=== PATIENT | male | born 1935 | race Caucasian/White ===

== ENCOUNTER 2020-12-04 09:19 | Outpatient (CLI) | payer MEDICARE, SELFPAY ==
--- NOTE | ~2020-12-04 | US_ITS ---
US renal BI 12/04/2020 10:39 Procedure: Realtime transabdominal ultrasound of the kidneys and bladder. Indication: Chronic kidney disease stage III Comparison: No prior studies for comparison. Findings: There are multiple bilateral renal cysts. Largest in the right kidney measures 6.1 cm. Larg est in the left measures 2.2 cm. No solid masses, hydronephrosis or renal stones. The right kidney me asures 13.7 cm and left kidney measures 10.6 cm. Bladder within normal limits. Impression: 1: Bilateral renal cysts. Reviewed, dictated and finalized at location A. Impression: 1: Bilateral renal cysts.
== END 2020-12-04 09:20 | disposition home or self-care (01) ==
LOC: ANHIMG 09:24
PROVIDERS: PCP Family Medicine; Visit Provider Family Medicine
DX: N18.30 Chronic kidney disease, stage 3 unspecified (principal); N28.1 Cyst of kidney, acquired
CPT/HCPCS: 76775

== ENCOUNTER 2021-01-13 14:30 | Outpatient (RCR) | payer MEDICARE, SELFPAY ==
--- NOTE | 2021-01-04 16:31 | STOPEVAL ---
SPEECH THERAPY INITIAL EVALUATION: Thank you for referring Dwayne Hopson to [facility].? The patient is scheduled to be seen for therapy? 2x/week for 4 weeks. Please review, sign, date and return this plan of care BOB. I agree with and certify that the following plan of care is medically necessary. Referring Physician Date Attending Provider: Jonatan Wilkinson MD Outpatient Past Medical History Past Medical History Source of Past Medical History Patient Neurological History Hx Parkinson's Disease Yes: pt thinks 2016 or so Musculoskeletal History Hx Other Musculoskeletal Disorders Yes: back surgery @ L5 HEENT History Hx Macular Degeneration Yes Evaluation Information Problem Diagnosis swallowing and speech difficulty/not being loud enough Onset Pt thinks he was diagnosed about 5 years ago Prior Level of Function Activity Level (Last 3 Months) Occupation retired Driving Yes Home Setting Home Type House Living Situation With Spouse Mobility Assistive Devices (Used Last 3 Walker, Rollator Months) Prior Swallow Level Prior Intake Method Oral Prior Diet Soft and Bite-Sized (Level 6 Diet) Prior Liquid Consistency Thin (Level 0 Diet) Comments Additional Prior Level of Function Pt reports that he eats soft Comments foods that require less chewing; dentition is intact; he reports that his vocal quality is often gurgly due to excessive saliva that gathers and accumulates in throat Bedside Swallow Evaluation General Reports Dysphagia Yes: occasionally I regurgitate my food Onset of Dysphagia pt unable to determine when difficulty began;pt also reports low volume History of Related Medical Diagnosis Parkinson's Disease Reported Difficult Consistencies Solids Meal Observed Bedside Swallows History of Dysphagia No: I eat softer foods that don't require a lot of chewing Other Factors Impacting Dysphagia Neurological Impairment History of Pneumonia No Intake Method Prior to Swallow Oral Evaluation Diet Prior to Swallow Evaluation Soft and Bite Size, Level 6 Liquid Consistency Prior to Swallow Thin (0) Evaluation Cognition During Swallowing Alert Consistency Solid Consistency Other Swallow Amount cracker M
--- NOTE | 2021-02-03 12:52 | STOPEVAL ---
SPEECH THERAPY DISCHARGE: Thank you for referring Dwayne Hopson to [facility].? The patient has been discharged from speech therapy services at this time. Please review, sign, date and return this discharge summary BOB. I agree with and certify with the following discharge plan. Referring Physician Date Attending Provider: Jonatan Wilkinson MD * Outpatient Evaluation ST Clinical Summary Clinical Summary ST Clinical Summary This 85 year old was seen in outpatient speech therapy for a bedside swallow evaluation and speech evaluation due to complaint of low volume and difficulty swallowing. Pt stated he has diagnosis of Parkinson disease but stated he was told he has the kind that occurs later in life and would not kill him . Pt presented with an intermittent wet/gurgly vocal quality and reported his spouse has hearing loss and cannot hear him. He could not definitively state when he was diagnosed with Parkinson disease. Pt stated he occasionally has difficulty swallowing as food gets stuck and he occasionally coughs while drinking. Upon completion of the speech/ voice portion of the evaluation, a mild decline in intelligibility occurred during a reading task which would potentially mimic pt telling his spouse a story etc . Gurgly vocal quality, increased rate, and slight decline in volume, at times, contributed to the decline in his overall intelligibility. Averages in volume in terms of decibels is described above. Breath support was found to be within normal limits; oral motor assessments was within functional limits in regard to ROM, speed, and strength. Swallow evaluation: pt was
== END 2021-02-03 16:43 | disposition home or self-care (01) ==
LOC: ANHST 14:30
PROVIDERS: PCP Family Medicine; Visit Provider Psychiatry & Neurology Neurology
DX: R47.9 Unspecified speech disturbances (principal); R13.10 Dysphagia, unspecified
CPT/HCPCS: 92522; 92526; 92610

== ENCOUNTER 2021-11-02 13:40 | Inpatient (IN) | payer MEDICARE, SELFPAY ==
[2021-11-02] VITALS (23 sets, daily range): BP systolic 113–187; BP diastolic 42–79; PULSE 64–117; RESP 15–25; TEMP 37.1–37.2; O2SAT 88–100; BMI 23.1
--- NOTE | ~2021-11-02 | CT_ITS ---
EXAMINATION: CTA chest PE protocol DATE: 11/02/2021 16:51 CDT INDICATION: Hypoxia. Covid positive. TECHNIQUE: Computed tomographic angiography (CTA) of the chest was performed with 100 mL Omnipaque-35 0 intravenous contrast. The dose-length product was 584.74 mGy-cm. Maximum intensity projection 3D-re constructions of the aorta and other arteries were constructed by the technologist on a separate work station. COMPARISON: Chest x-ray dated 11/02/2021. FINDINGS: Heart size is normal. There is a hiatal hernia. No large central pulmonary embolism. Evalua tion of peripheral pulmonary arteries limited by contrast bolus timing and motion. No significant ple ural effusion. There is left hilar and mediastinal lymphadenopathy. There is a pericardial effusion. There is patchy groundglass opacities in both lungs, consistent with pneumonia. There are bilateral r enal cysts. IMPRESSION: 1. Patchy bilateral groundglass opacities in both lungs, consistent with pneumonia. 2: No large central pulmonary embolism. 3: Mediastinal and left hilar lymphadenopathy, likely reactive. 4: Small pericardial effusion. Reviewed, dictated and finalized at location A. IMPRESSION: 1. Patchy bilateral groundglass opacities in both lungs, consistent with pneumo darlin. 2: No large central pulmonary embolism. 3: Mediastinal and left hilar lymphadenopathy, likely reactive. 4: Small pericardial effusion.
--- NOTE | ~2021-11-02 | XR_ITS ---
XR chest 1V portable 11/02/2021 15:24 Indication: Status post fall. Chest pain. Procedure: AP portable chest Comparison: No prior studies for comparison. Findings: Heart size normal. There is patchy bibasilar airspace disease, consistent with pneumonia. N o pleural effusion or pneumothorax. There is atherosclerosis of the aorta. No acute osseous abnormali ty. Impression: 1: Patchy bilateral airspace disease, compatible with pneumonia. Reviewed, dictated and finalized at location A. Impression: 1: Patchy bilateral airspace disease, compatible with pneumonia.
--- NOTE | ~2021-11-02 | XR_ITS ---
EXAMINATION: XR chest ET placement DATE: 11/04/2021 15:19 INDICATION: Intubation. TECHNIQUE: A single frontal view of the chest was obtained on 2 radiographs. COMPARISON: Chest single view at 5:31 AM FINDINGS: There is a diffuse interstitial pattern in the lungs. There are airspace opacities in the l ower lung zones. No pleural effusion or pneumothorax. The heart size is normal. The endotracheal tube tip is 4.7 cm above the neymar. The nasogastric tube tip is in the stomach. IMPRESSION: 1. Mildly worsened diffuse lung disease, likely a combination of pneumonia and mild pulmonary edema. Reviewed, dictated and finalized at location A.
--- NOTE | ~2021-11-02 | XR_ITS ---
EXAMINATION: XR chest 1V portable DATE: 11/03/2021 06:17 INDICATION: Intubated. TECHNIQUE: A single frontal view of the chest was obtained on 2 radiographs. COMPARISON: Chest single view 11/02/2021 FINDINGS: There are airspace opacities in right lower lung zone and left mid and lower lung zones. Th ere is a small left pleural effusion. No pneumothorax. The heart size is normal. The nasogastric tube tip is in the stomach. Endotracheal tube tip is 7.4 cm above the neymar. IMPRESSION: 1. Airspace opacities in right lower lung zone and left mid and lower lung zones with worsening on th e right, consistent with pneumonia. 2. Small left pleural effusion. Reviewed, dictated and finalized at location A. IMPRESSION: 1. Airspace opacities in right lower lung zone and left mid and lower lung zone s with worsening on the right, consistent with pneumonia. 2. Small left pleural effusion.
--- NOTE | ~2021-11-02 | XR_ITS ---
EXAMINATION: XR chest 1V portable DATE: 11/08/2021 06:55 INDICATION: Endotracheal tube placement TECHNIQUE: frontal view of the chest was obtained. COMPARISON: Chest radiograph dated 11/06/2021 FINDINGS: Endotracheal tube tip 3.1 cm above the neymar. Nasogastric tube tip in the stomach. Improvement in subtle opacities in the bilateral lower lung zones, left greater than right. No pleura l effusion or pneumothorax. The cardiomediastinal silhouette is normal. There are bridging osteophyte s at multiple levels in the spine, consistent with diffuse idiopathic skeletal hyperostosis (DISH). IMPRESSION: 1. Endotracheal tube and nasogastric tube in expected positions. 2. Decrease in subtle opacities in bilateral lower lung zones, left greater than right consistent wit h improving pneumonia and/or atelectasis. Reviewed, dictated and finalized at location A. IMPRESSION: 1. Endotracheal tube and nasogastric tube in expected positions. 2. Decrease in subtle opacities in bilateral lower lung zones, left greater ирина n right consistent with improving pneumonia and/or atelectasis.
--- NOTE | ~2021-11-02 | CT_ITS ---
EXAMINATION: CT brain wo con DATE: 11/02/2021 15:17 INDICATION: Status post fall. Head injury. TECHNIQUE: Computed tomography (CT) of the head was performed without intravenous contrast. The dose- length product was 473.22 mGy-cm. Automated exposure control and iterative reconstruction technique w ere employed. COMPARISON: None FINDINGS: Generalized atrophy. There are scattered mild periventricular and subcortical white matter changes, most likely related to small vessel ischemic disease (microangiopathy). No acute intracrania l hemorrhage, infarction, mass or mass effect. Paranasal sinuses and mastoids are pneumatized. IMPRESSION: 1. No acute intracranial abnormality. 2: Chronic age-related findings. Reviewed, dictated and finalized at location A.
--- NOTE | ~2021-11-02 | XR_ITS ---
EXAMINATION: XR chest ET placement DATE: 11/02/2021 23:37 INDICATION: Intubation. TECHNIQUE: A single frontal view of the chest was obtained. COMPARISON: Chest single view 11/02/2021 FINDINGS: There are airspace opacities in the lower lung zones. No pleural effusion or pneumothorax. The heart size is normal. The endotracheal tube tip is 7.0 cm above the neymar. IMPRESSION: 1. Airspace opacities in the lower lung zones, consistent with pneumonia. Reviewed, dictated and finalized at location A.
--- NOTE | ~2021-11-02 | XR_ITS ---
XR pelvis 1-2V DATE: 11/02/2021 15:24 INDICATION: Fall. Pelvic pain. TECHNIQUE: AP view COMPARISON: None FINDINGS: Very prominent bridging osteophytes and multilevel degenerative disc disease of the lumbosa cral area. Bilateral hip severe osteoarthritis, right greater than left. The pubic symphysis and sacroiliac joints are intact. No pelvic fracture or bone destruction is detected. IMPRESSION: No pelvic fracture or bone destruction Severe bilateral hip osteoarthritis Prominent bridging osteophytes and multilevel degenerative disc disease of the lumbar and lower cervi dwight spine Reviewed, dictated and finalized at location B. IMPRESSION: No pelvic fracture or bone destruction Severe bilateral hip osteoarthritis Prominent bridging osteophytes and multilevel degenerative disc disease of the lumbar and lower cervical spine
--- NOTE | ~2021-11-02 | XR_ITS ---
EXAMINATION: XR chest 1V portable DATE: 11/04/2021 05:45 INDICATION: Intubated. TECHNIQUE: A single frontal view of the chest was obtained on 2 radiographs. COMPARISON: Chest single view 11/03/2021, chest CT 11/02/2021 FINDINGS: The patient is rotated to his left. There are airspace opacities in the lower lung zones. T here is a small left pleural effusion. No pneumothorax. The heart size is normal. The endotracheal tu be tip is 5.2 cm above the neymar. The nasogastric tube tip is in the stomach. IMPRESSION: 1. Stable airspace opacities in the lower lung zones, consistent with pneumonia. 2. Stable small left pleural effusion. Reviewed, dictated and finalized at location A. IMPRESSION: 1. Stable airspace opacities in the lower lung zones, consistent with pneumonia . 2. Stable small left pleural effusion.
--- NOTE | ~2021-11-02 | CT_ITS ---
EXAMINATION: CT cervical spine wo con DATE: 11/02/2021 15:17 INDICATION: Status post fall. Neck pain. TECHNIQUE: Computed tomography (CT) of the cervical spine was performed without intravenous contrast. The dose-length product was 298 mGy-cm. Automated exposure control and iterative reconstruction tech nique were employed. COMPARISON: No prior studies for comparison. FINDINGS: There is disc narrowing and degenerative endplate changes at most cervical spine levels. Th ere are prominent bridging osteophytes at C3-4 through C7-T1. No acute fracture or traumatic malalign ment. Odontoid process within normal limits. There is intracranial atherosclerosis. There is left upp er lobe airspace disease, suspicious for pneumonia. IMPRESSION: 1. No acute abnormality of the cervical spine. 2: Left upper lobe airspace disease, suspicious for pneumonia. 3: Moderate-severe cervical spondylosis with multilevel syndesmophyte formation. Reviewed, dictated and finalized at location A. IMPRESSION: 1. No acute abnormality of the cervical spine. 2: Left upper lobe airspace disease, suspicious for pneumonia. 3: Moderate-severe cervical spondylosis with multilevel syndesmophyte formation .
--- NOTE | ~2021-11-02 | XR_ITS ---
EXAMINATION: XR chest ET placement DATE: 11/03/2021 06:16 INDICATION: Endotracheal tube repositioning. TECHNIQUE: A single frontal view of the chest was obtained on 2 radiographs. COMPARISON: Chest CT 11/02/2021, chest single view 11/02/2021 FINDINGS: There are airspace opacities in right lower lung zone and left mid and lower lung zones. Th ere is a small left pleural effusion. No pneumothorax. The heart size is normal. The endotracheal tub e tip is 5.3 cm above the neymar. The nasogastric tube tip is in the stomach. IMPRESSION: 1. Airspace opacities in right lower lung zone and left mid and lower lung zones, consistent with pne umonia. 2. Small left pleural effusion. Reviewed, dictated and finalized at location A. IMPRESSION: 1. Airspace opacities in right lower lung zone and left mid and lower lung zone s, consistent with pneumonia. 2. Small left pleural effusion.
--- NOTE | ~2021-11-02 | XR_ITS ---
EXAMINATION: XR chest 1V portable INDICATION: Shortness of breath TECHNIQUE: Portable AP chest at 0601 hours COMPARISON: 11/05/2021 FINDINGS: The endotracheal tube ends approximately 4.1 cm above the neymar. The nasogastric tube is i n the stomach. There are stable left basilar airspace opacities. The previously described diffuse int erstitial pattern has resolved. No definite pleural effusion or pneumothorax. The cardiomediastinal s ilhouette is stable. IMPRESSION: 1. Left basilar airspace opacities, consistent with atelectasis versus pneumonia. Reviewed, dictated and finalized at location A. IMPRESSION: 1. Left basilar airspace opacities, consistent with atelectasis versus pneumoni a.
--- NOTE | ~2021-11-02 | XR_ITS ---
EXAMINATION: XR chest 1V portable INDICATION: Respiratory failure TECHNIQUE: Portable AP chest at 0548 hours COMPARISON: 11/04/2021 FINDINGS: The endotracheal tube ends approximately 5.1 cm above the neymar. The nasogastric tube is i n the stomach. A mild diffuse interstitial pattern persists but has improved. There are persistent ai rspace opacities in the left lung base. No pleural effusion or pneumothorax. The cardiomediastinal si lhouette is stable. IMPRESSION: 1. Diffuse lung disease with slight improvement and stable opacities of the left lung base, consisten t with pneumonia and/or pulmonary edema. Reviewed, dictated and finalized at location A. IMPRESSION: 1. Diffuse lung disease with slight improvement and stable opacities of the lef t lung base, consistent with pneumonia and/or pulmonary edema.
--- NOTE | 2021-11-02 13:58 | ECG_ITS ---
Measurements Intervals [place] Rate: 73 P: 50 CA: 178 QRS: 90 QRSD: 141 T: 58 QT: 412 QTc: 454 Interpretive Statements SINUS RHYTHM WITH SINUS ARRHYTHMIA RIGHT BUNDLE BRANCH BLOCK [120+ ms QRS DURATION, UPRIGHT V1, 40+ ms S IN I/aVL/V4/V5/V6] RIGHT AXIS DEVIATION NO PREVIOUS ECG AVAILABLE FOR COMPARISON Electronically Signed On 11-02-2021 18:37:22 CDT by Aprly Frankel M.D.
[2021-11-02 14:39] LABS: SARS-CoV-2 RNA PCR Positive
[2021-11-02 14:56] LABS: Basophils Percent Auto 0.2 % (0.2-1.2); Hemoglobin 10.7 g/dL (14.0-18.0); Immature Granulocyte Absolute 0.05 K/mm3 (0.00-0.031); Immature Granulocyte Percent A 0.4 % (0-0.5); Lymphocytes Absolute Auto 1.04 K/mm3 (0.9-3.2); Lymphocytes Percent Auto 7.7 % (18.3-44.2); Mean Corpuscular HGB Conc 31.5 g/dl (32-36); Mean Corpuscular Hemoglobin 30.6 pg (26-34); Mean Corpuscular Volume 97.1 fl (80-100); Mean Platelet Volume 9.8 fl (7.4-10.4); Monocytes Absolute Auto 1.4 K/mm3 (0.1-0.6); Monocytes Percent Auto 10.4 % (2.6-8.5); Neutrophils Absolute Auto 11.1 K/mm3 (1.3-6.7); Neutrophils Percent Auto 81.3 % (45.5-73.1); Platelet Count Result 171 k/mm3 (150-375); Red Cell Distribution Width 13.6 % (11.5-14.5); White Blood Count 13.6 K/mm3 (4.5-10.0)
[2021-11-02 15:11] LABS: Alanine Aminotransferase 10 U/L (6-50); Albumin Level 3.3 g/dL (3.5-5.1); Alkaline Phosphatase 66 U/L (38-126); Anion Gap 6 mmol/L (8-16); Aspartate Amino Transferase 42 U/L (17-59); Bilirubin,Total 0.4 mg/dL (0.2-1.3); Blood Urea Nitrogen 28 mg/dL (9-20); Calcium 7.8 mg/dL (8.4-10.2); Carbon Dioxide 28 mmol/L (22-30); Chloride 96 mmol/L (98-107); Estimated CRCL calculation 38 ml/min; Estimated Glomerular Filt Rate 57; Glucose 101 mg/dL (65-110); Potassium 3.9 mmol/L (3.4-5.0); Sodium 130 mmol/L (137-145)
[2021-11-02 15:22] LABS: NT Pro B Type Natriuretic Pept 2130 pg/mL (5-100)
[2021-11-02 15:27] LABS: Troponin I 0.031 ng/mL (0.000-0.034)
[2021-11-02 15:41] LABS: D Dimer 1.12 ug/mL (<0.48)
[2021-11-02] MEDS: FUROSEMIDE INJ 40 MG/4 ML VIAL 20 MG IV PUSH (15:45)
[2021-11-02] MEDS: DEXAMETHASONE SOD PHOS INJ 4 MG/ML VIAL 12 MG IV PUSH (15:45)
--- NOTE | 2021-11-02 15:49 | PC.NURSE ---
pt has large amount of secretions. Pt will cough and spit or have them suctioned when prompted to clear them.
--- NOTE | 2021-11-02 17:53 | PC.NURSE ---
suctioned secretions from pts mouth
--- NOTE | 2021-11-02 17:57 | PC.NURSE ---
pt using urinal at this time with assistance
[2021-11-02 18:38] LABS: Troponin I 0.038 ng/mL (0.000-0.034)
[2021-11-02] MEDS: ASPIRIN 81 MG CHEWABLE TABLET 324 MG PO (18:50)
--- NOTE | 2021-11-02 20:00 | ADMGEN ---
This patient, Dwayne Hopson, was admitted to IMU Room 213-01. Patient/family oriented to hospital policies and general routines including ID bracelet, bed and alarms, visiting hours, pain management, procedures, bathroom and other care routines, personal items, smoking policy, room service/diet, and visiting hours. Information on how to activate the Rapid Response Team has been discussed. Patient/Family are encouraged to report perceived risks to care and to ask questions if they do not understand what they are told or what they should do.
--- NOTE | 2021-11-02 20:26 | ED.GENADULT ---
HPI - General Adult General Chief complaint: Syncope Stated complaint: syncopal Time Seen by Provider: 11/02/21 14:03 History of Present Illness HPI narrative: This is a 86-year-old male with history of Parkinson's disease present in the ED after syncopal event at home. Patient states that he was attempting to take out his garbage when he had a fall due to his Parkinson's. he denies any preceding dizziness, chest pain difficulty breathing. EMS was called to help him up. When EMS helped the patient up he had a syncopal event that lasted for approximately 45 minutes. the patient has taken a positive home COVID test. He was found to be hypoxic by EMS at 88% on room air. He improved on 2 L nasal cannula. He has had fever chills and productive cough. He denies any other symptoms. Related Data Home Medications Medication Instructions Recorded Confirmed multivitamin (Multiple Vitamins 1 tablet PO DAILY 10/31/19 03/07/21 tablet) vit cap PO 10/31/19 03/07/21 C,E,zinc,Jd-akban-4-lutein-zeaxanthin 250 mg-2.5 mg-0.5 mg capsule Allergies Allergy/AdvReac Type Severity Reaction Status Date / Time No Known Allergies Allergy Verified 11/02/21 14:08 Review of Systems Review of Systems: CONSTITUTIONAL: Denies night sweats. EYES: No eye pain ENT: Denies rhinorrhea CARDIOVASCULAR: Denies palpitations RESPIRATORY: Denies hemoptysis GASTROINTESTINAL: Denies hematemesis GENITOURINARY: Denies hematuria. SKIN: Denies rash MUSCULOSKELETAL: Denies myalgia. NEUROLOGIC: Denies weakness. PSYCHIATRIC: Denies delusions PMFSH Past Medical History Medical History BPH loc w urin obs/LUTS Chronic renal insufficiency, stage III (moderate) Macula lutea degeneration Parkinson disease Surgical History Surgical History History of hernia repair History of tonsillectomy Family History Family History Father Acute myocardial infarction Mother Family history of lymphoma Social History Social History Smoking status: Former smoker Second hand tobacco smoke exposure: No Smoking end date: 03/26/70 Alcohol intake: current Drinks per week: 2 Substance use: never Substance use type: does not use Gender identity (if verbalized by the patient): Male Sexual Orientation (if Verbalized by the Patient): Straight or Heterosexual Spiritual care concerns: Yes Agree to blood products: Yes Exam Narrative: APPEARANCE: No apparent distress. Patient appears frail Head atraumatic. EYES: PERRLA/EOMI, NOSE: Normal no drainage NECK: Supple, Trachea midline RESPIRATORY: bibasilar crackles, no increased work of breathing CARDIOVASCULAR: S1S2 appreciated ABDOMINAL: Soft, nontender, nondistended, MUSCULOSKELETAl: No obvious deformities NEURO: Alert. Cranial nerves 2-12 grossly intact. Sensation light touch, motor function cerebellar function intact for 4 extremities. Gait exam was normal. SKIN:: Warm, dry. Normal color PSYCHIATRIC: Normal affect Course Vital Signs Vital signs: Vital Signs Temperature 98.9 F 11/02/21 13:39 Pulse Rate 74 11/02/21 13:39 Respiratory Rate 20 11/02/21 13:39 Blood Pressure 125/52 L 11/02/21 13:39 Pulse Oximetry 88 L 11/02/21 13:39 Oxygen Delivery Room Air 11/02/21 13:39 Temperature 98.9 F 11/02/21 13:39 Pulse Rate 76 11/02/21 19:51 Respiratory Rate 23 H 11/02/21 19:51 Blood Pressure 144/68 H 11/02/21 19:51 Pulse Oximetry 97 11/02/21 19:51 Oxygen Delivery Nasal Cannula 11/02/21 14:04 Oxygen Flow Rate 2 11/02/21 14:04 Medical Decision Making MDM Narrative Medical decision making narrative: is an 86-year-old male sent to ED following a fall and syncopal event. CT of the head C-spine, chest x-ray and pelvis x-ray been
--- NOTE | 2021-11-02 22:00 | PC.NURSE ---
Attempted to deep suction pt with amount of thick heaton sputum collected.
--- NOTE | 2021-11-02 22:28 | PC.NURSE ---
This RN walked in to check pt with SpO2 sensor off at 2227 and noticed pt gasping for air. Attempted to suction d/t pt producing a large amount of sputum in previous suction attempts. Pt quickly progressed to no air flow in the lungs, decreased consciousness, and SpO2 at 66%. Code blue for respiratory arrest activated at 2229. Began ventilating pt with ambu bag with increase in O2 saturation. Transfer to ICU at 0.
--- NOTE | 2021-11-02 22:30 | PM.CCN ---
Critical Care Event Note Summary Code activated: Yes Narrative: This case had a high probability of a clinically significant, sudden, or life threatening deterioration of this patient's condition which required my full and direct attention, intervention and personal management. Critical care time: less than 30 mins
--- NOTE | 2021-11-02 23:00 | WPDPROCEDUR ---
Procedures Central Line Placement Right Femoral: Consent: I have discussed with the patient and/or surrogate, the non-emergent placement of a central venous catheter, including its clinical necessity/indication and associated potential risks and complications. The patient and/or surrogate understand(s) and acknowledge(s) the need to proceed with central venous catheter insertion as an important element of the patient's clinical management. Time Out Performed: Yes Patient Position: supine Patient placed on monitor/pulse ox: Yes Provider Prep: Max. sterile barrier precautions Central line prep: 2% Chlorhexidine scrub Local anesthesia used: lidocaine 1% Amount of anesthesia used (ml): 8 Sterile US Technique with sterile gel/sterile probe covers: Yes Central line lumen inserted: triple Gibralt[place]: 7 Length (cm): 16 Depth of Insertion (cm): 15 Complications: none Additional comments: no postprocedure x-ray needed as it is a Femoral central
[2021-11-02 23:14] LABS: Alveolar/Arterial O2 Gradient 148.4 mmHg; Base Excess ABG -3.6 mEq/l (+/-2.0); Carboxyhemoglobin 0.2 % THb (0-2.0); Fractional Inspired Oxygen 50 %; HCO3 ABG 26.3 mEq/l (22.0-26.0); Methemoglobin ABG 0.4 %THb (0-1.5); Oxygen Content ABG 18.8 %vol (16.0-22.0); Oxygen Saturation ABG 97.6 % (95.0-100.0); Oxyhemoglobin 96.8 % THb (90.0-100.0); PO2 ABG 127.3 mmHg (80.0-100.0); PO2 FiO2 Ratio Arterial Blood 2.55 %; Reduced Hemoglobin 2.6 %THb (0-5.0); Total Hemoglobin 13.7 g/dL (12.0-18.0)
[2021-11-02] MEDS: FENTANYL 2,500MCG/NS250ML(*CRX 2,500 MCG/250 ML BAG IV CONT (23:15)
[2021-11-02 23:19] LABS: PCO2 ABG 71.8 mmHg (35.0-45.0); Site Drawn LEFT RADIAL; pH ABG 7.182 (7.350-7.450)
[2021-11-02 23:20] LABS: Arterial Blood Gas PEEP 5 cmH2O; Arterial Blood Gas Tidal Volume 400 ml; Arterial Blood Gas Vent Mode CMV; Arterial Blood Gas Ventilator rate 16 /MIN; Device VENTILATOR; Modified Allen's Test Pass
[2021-11-02] MEDS: MIDAZOLAM 100MG/NS 100ML(*CRX) 100 MG/100 ML BAG IV CONT (23:20)
[2021-11-03] VITALS (35 sets, daily range): BP systolic 88–136; BP diastolic 43–69; PULSE 4–77; RESP 18–24; TEMP 35.3–36.6; O2SAT 90–99; BMI 23.8
--- NOTE | 2021-11-03 | ECHO_ITS ---
Patient Info Name: Dwayne Hopson Age: 86 years : 1935 Gender: Male Ht: 68 in Wt: 150 lbs BSA: 1.81 m2 HR: 59 bpm BP: 93 / 43 mmHg Technical Quality: Poor Exam Date: 11/03/2021 9:32 AM Exam Location: [facility] Patient Status: Inpatient Admit Date: 11/02/2021 Staff Ordering Physician: Carmela Escalante NP Fisher Oyster: Didier Henson RDCS, RT Attending Provider: Marky Hammond MD Referring Physician: Boris GARCIA; Exam Type: CA echo doppler color flow Study Info Indications I50.9 - Heart failure, unspecified Complete two-dimensional, color flow and Doppler transthoracic echocardiogram is performed. Summary 1. Complete two-dimensional, color flow and Doppler transthoracic echocardiogram is performed. 2. Technically suboptimal study due to poor sonographic images. 3. Left ventricular chamber dimension is normal. 4. Left ventricular systolic function is normal, estimated at 55-60%. 5. There is mildly increased left ventricular wall thickness. 6. The left ventricular diastolic function is grade I diastolic dysfunction. 7. E/e' 8 is minimally elevated. 8. Right ventricular chamber dimension is mildly enlarged. 9. There is trivial pericardial effusion. Left Ventricle Technically suboptimal study due to poor sonographic images. Left ventricular chamber dimension is normal. Left ventricular systolic function is normal, estimated at 55-60%. There is mildly increased left ventricular wall thickness. The left ventricular diastolic function is grade I diastolic dysfunction. E/e' 8 is minimally elevated. Right Ventricle Right ventricular chamber dimension is mildly enlarged. Right ventricular systolic function is normal. Left Atria Left atrial chamber dimension is normal. Right Atria Right atrial chamber dimension is normal. Aortic Valve The aortic valve is not well visualized. Cannot determine number of aortic valve leaflets. There is no aortic valve stenosis. There is no aortic valve regurgitation. Pulmonic Valve The pulmonic valve is not well visualized. Mitral Valve There is no mitral valve stenosis. There is no mitral valve regurgitation. Tricuspid Valve The tricuspid valve leaflets are not well visualized. There is no tricuspid valve regurgitation. Pericardium/Pleural There is trivial pericardial effusion. Inferior Vena Cava Inferior vena cava is not well visualized. Aorta The aortic root size at the sinus of Valsalva is normal. Left Ventricular Outflow Tract Name Value Normal LVOT 2D LVOT Diameter 2.1 cm LVOT Doppler LVOT Peak Gradient 2 mmHg LVOT Mean Gradient 1 mmHg LVOT VTI 20 cm LVOT VTI/AV VTI Ratio 0.9 LVOT Stroke Volume 68 ml LVOT CO 4.1 l/min LVOT CI 2.2 l/min/m2 Mitral Valve Name Value Normal
--- NOTE | 2021-11-03 00:22 | P.PNCROSS_ITS ---
Event Note Event Note Event Note: I was called to a code blue at 10:30 p.m. the patient had a pulse and the nurs ing staff was using the Ambu bag to oxygenate the patient because he was copy breathing. No chest compressions were performed. The patient had gone in to [facility].
--- NOTE | 2021-11-03 00:23 | PM.IMHP ---
H&P: HPI History of Present Illness Date/Time: 11/02/21 2200 Chief Complaint: Shortness of breath and syncope Narrative: this is a 86-year-old male patient with a history of Parkinson's who presented to the emergency room after syncopal event at home. The patient was attempting to take out his garbage when he fell. He is abrasions to both of his knees. He denied any dizziness or any chest pain at the time and denied any difficulty breathing. EMS was called help get him up. The patient had a positive home COVID testing was also positive here as well. His is also positive. The patient was found to be hypoxic at 88% on room air and was placed on 2 L per nasal cannula. He has had a fever, chills and a productive cough. When I spoke with the patient he was satting 97% but was having difficulty breathing. We gave him a younger and he was suctioning and self out. He was coughing up sputum and using the on occurred to suction out the secretions. The patient was answering his questions the best he could. CTA was read as the following 1. Patchy bilateral groundglass opacities in both lungs, consistent with pneumonia. 2:? No large central pulmonary embolism. 3:? Mediastinal and left hilar lymphadenopathy, likely reactive. 4:? Small pericardial effusion. the patient was given Decadron, Lasix, and aspirin, the patient is being admitted to inpatient services. Date of service is 11/02/2021 Review of Systems Review of Systems: as per HPI All systems reviewed & are unremarkable except as noted in HPI and below Constitutional: Constitutional: Reports as per HPI and Reports no additional constitutional complaints Eyes: Eyes: Reports as per HPI and Reports no additional eye complaints ENT: Reports system reviewed and no additional complaints, except as documented and Reports Normal hearing present Cardiovascular: Cardiovascular: Reports no additional cardiovascular complaints Respiratory: Respiratory: Reports no additional respiratory complaints and Reports no additional respiratory complaints Gastrointestinal: Gastrointestinal: Reports as per HPI and Reports no additional gastrointestinal complaints Musculoskeletal: Musculoskeletal: Reports no additional musculoskeletal complaints Integumentary/Breasts: Skin/Breast: Reports system reviewed and no additional complaints, except as docu and Reports as per HPI Neurologic: Reports system reviewed and no additional complaints, except as documented, Reports as per HPI and Reports Normal hearing present Psychiatric: Psychiatric: Reports no additional psychiatric complaints and Reports as per HPI Endocrine: Endocrine: Reports no additional endocrine complaints Hematologic/Lymphatic: Hematologic/Lymphatic: Reports no additional hematologic/lymphatic complaints Allergic/Immunologic: Allergic/Immunologic: Reports no additional allergic/immunologic complaints PMFSH Past Medical History Medical History BPH loc w urin obs/LUTS Chronic renal insufficiency, stage III (moderate) Macula lutea degeneration Parkinson disease Surgical History Surgical History History of hernia repair History of tonsillectomy Family History Family History Father Acute myocardial infarction Mother Family history of lymphoma Social History Social History (Updated 11/03/21 @ 00:28 by Carmela Escalante NP) Social History: the patient is to Arabella and he has 3 children. He is retired from [employer]. he is a former smoker. his children of the durable power senior trial attorney for healthcare. Code status full code Smoking status: Former smoker Second hand tobacco smoke exposure: No Alcohol intake: current Drinks per week: 2 Substance use: never Substance use type: does not use Gender identity (if verbalized by the patient):
--- NOTE | 2021-11-03 00:43 | WPDPROCEDUR ---
Procedures Intubation Intubation Date: 11/02/21 Intubation Time: 23:00 Sedative: etomidate Mg given: 40 Paralytic: succinylcholine Mg given: 40 Laryngoscope: fiber optic video scope Assist device used: fiber optic device ET tube size: 7.5 Tube secured depth (cm): 23 Tube secured location: lips Tube placement confirmation: visualized tube passing through cords, equal breath sounds bilaterally and confirmation by capnometry Patient tolerated procedure: well Additional comments: chest x-ray shows that the ET tube was 7 cm above the neymar so we will move the tube down 2 more cm and repeat chest x-ray. The EG tube was pushed down 2 cm then to 25 years at the lip. Will repeat chest x-ray.
[2021-11-03 00:46] LABS: Hematocrit 37.3 % (42.0-52.0); Hemoglobin 11.7 g/dL (14.0-18.0); Mean Corpuscular HGB Conc 31.4 g/dl (32-36); Mean Corpuscular Hemoglobin 30.6 pg (26-34); Mean Corpuscular Volume 97.6 fl (80-100); Platelet Count Result 188 k/mm3 (150-375); Red Blood Count 3.82 M/mm3 (4.6-6.20); Red Cell Distribution Width 13.5 % (11.5-14.5); White Blood Count 13.8 K/mm3 (4.5-10.0)
[2021-11-03 00:57] LABS: Alanine Aminotransferase 18 U/L (6-50); Anion Gap 11 mmol/L (8-16); Blood Urea Nitrogen 29 mg/dL (9-20); Calcium 7.7 mg/dL (8.4-10.2); Carbon Dioxide 29 mmol/L (22-30); Chloride 95 mmol/L (98-107); Estimated CRCL calculation 38 ml/min; Estimated Glomerular Filt Rate 57; Glucose 150 mg/dL (65-110); Magnesium 1.7 mg/dL (1.6-2.3); Potassium 4.2 mmol/L (3.4-5.0); Sodium 135 mmol/L (137-145)
[2021-11-03 01:01] LABS: INR 1.1; Prothrombin Time 13.4 Seconds (11.1-14.7)
[2021-11-03] MEDS: REMDESIVIR 200 MG/NS 250 ML 200 MG/250 ML BAG 250 MG IVPB (02:17)
[2021-11-03] MEDS: SODIUM CHLORIDE 0.9% IV 1,000 ML 999 ML IV CONT (02:18)
[2021-11-03] MEDS: RAPID SEQUENCE INTUBATION KIT 1 EACH (02:19)
--- NOTE | 2021-11-03 03:00 | PC.NURSE ---
This patient, Dwayne Hopson, was received from [facility] on 11/02/21 at 2250 into ICU 1. Patient/family oriented to unit policies and routines
[2021-11-03 05:40] LABS: Alveolar/Arterial O2 Gradient 439.9 mmHg; Base Excess ABG -2.6 mEq/l (+/-2.0); Fractional Inspired Oxygen 100 %; HCO3 ABG 26.1 mEq/l (22.0-26.0); Oxygen Content ABG 19.8 %vol (16.0-22.0); Oxygen Saturation ABG 99.2 % (95.0-100.0); Oxyhemoglobin 98.1 % THb (90.0-100.0); PO2 ABG 210.6 mmHg (80.0-100.0); PO2 FiO2 Ratio Arterial Blood 2.11 %
[2021-11-03 05:41] LABS: pH ABG 7.238 (7.350-7.450)
[2021-11-03 05:42] LABS: Arterial Blood Gas PEEP 5 cmH2O; Arterial Blood Gas Vent Mode CMV; Arterial Blood Gas Ventilator rate 18 /MIN; Device VENTILATOR; Modified Allen's Test Pass; PCO2 ABG 62.5 mmHg (35.0-45.0); Site Drawn LEFT RADIAL
[2021-11-03 05:43] LABS: Arterial Blood Gas Tidal Volume 400 ml
[2021-11-03 05:49] LABS: Hematocrit 34.2 % (42.0-52.0); Hemoglobin 10.7 g/dL (14.0-18.0)
[2021-11-03 05:59] LABS: INR 1.2
[2021-11-03 06:11] LABS: Alanine Aminotransferase 16 U/L (6-50); Estimated CRCL calculation 41 ml/min; Estimated Glomerular Filt Rate > 60
[2021-11-03] MEDS: MAGNESIUM SULF 2 GM/WATER 50ML 2 GM/50 ML BAG IVPB (09:19)
[2021-11-03] MEDS: CARBIDOPA/LEVODOPA 25/100 MG TABLET 1 TABLET PO ×4 (09:19→20:39)
[2021-11-03] MEDS: LIDOCAINE HCL 1% PF INJ 5 ML VIAL INFILTRATE (09:20)
[2021-11-03] MEDS: ENOXAPARIN 40 MG/0.4 ML SYRINGE SUB-Q (09:20)
[2021-11-03] MEDS: FAMOTIDINE 20 MG/2 ML VIAL IV PUSH ×2 (09:21→20:39)
[2021-11-03] MEDS: MINERAL OIL/WHITE PETROLATUM OINTMENT 1 APPLIC EACH EYE ×2 (09:21→22:12)
[2021-11-03] MEDS: BARICITINIB 2 MG TABLET 4 MG PO (09:22)
[2021-11-03 10:05] LABS: Alveolar/Arterial O2 Gradient 187.4 mmHg; Base Excess ABG -0.9 mEq/l (+/-2.0); Fractional Inspired Oxygen 45 %; HCO3 ABG 25.2 mEq/l (22.0-26.0); Oxygen Content ABG 15.5 %vol (16.0-22.0); Oxygen Saturation ABG 94.9 % (95.0-100.0); Oxyhemoglobin 94.7 % THb (90.0-100.0); PCO2 ABG 47.8 mmHg (35.0-45.0); PO2 ABG 79.1 mmHg (80.0-100.0); PO2 FiO2 Ratio Arterial Blood 1.76 %; Total Hemoglobin 11.6 g/dL (12.0-18.0); pH ABG 7.339 (7.350-7.450)
[2021-11-03 10:06] LABS: Arterial Blood Gas PEEP 5 cmH2O; Arterial Blood Gas Tidal Volume 400 ml; Arterial Blood Gas Vent Mode CMV; Arterial Blood Gas Ventilator rate 24 /MIN; Device VENTILATOR; Modified Allen's Test Pass; Site Drawn RIGHT RADIAL
[2021-11-03 11:13] LABS: Hematocrit 34.6 % (42.0-52.0); Hemoglobin 10.8 g/dL (14.0-18.0)
--- NOTE | 2021-11-03 11:36 | WPDCNINT ---
Assessment and Plan Assessment and plan (1) Acute hypoxemic respiratory failure due to COVID-19: Code(s): U07.1 - COVID-19; J96.01 - Acute respiratory failure with hypoxia Status: Acute Assessment and Plan: Acute multifactorial Respiratory failure secondary to COVID-19, possible congestive heart failure, possible bacterial aspiration pneumonia Patient tested positive for COVID-19. CTA negative for PE and showed bilateral ground-glass opacities consistent with pneumonia. Patient also has history of coughing pain as per his . Elevated WBC. Elevated BNP Continue full mechanical ventilation support to prevent hypoxemia/hypercarbia and end organ damage. ABG reviewed and shows improvement. Will increase rate further to 28. Early on 45% FiO2 and 5 PCXR reviewed and ETT was adjusted by night team after the chest x-ray report Low tidal volume ventilation strategy to prevent volutrauma Hold further IV fluids Blood and sputum cultures Empiric Zosyn, azithromycin (2) Pneumonia: Code(s): J18.9 - Pneumonia, unspecified organism Status: Acute (3) COVID-19: Code(s): U07.1 - COVID-19 Status: Acute Assessment and Plan: Isolation start dexamethasone remdesivir and Barcitinib He was tested positive for COVID on 11/01. He received prescription of paxlovid but did not take it. He is vaccinated against COVID-19 and has received a booster doses. (4) CHF (congestive heart failure): Code(s): I50.9 - Heart failure, unspecified Status: Acute Assessment and Plan: Check echocardiogram Hold Lasix as blood pressure soft (5) Elevated troponin: Code(s): R77.8 - Other specified abnormalities of plasma proteins Status: Acute Assessment and Plan: EKG reviewed and shows no ST elevation Mild elevation troponin likely secondary to respiratory failure and demand mediated ischemia Add aspirin (6) Parkinson's disease: Code(s): G20 - Parkinson's disease Status: Acute Assessment and Plan: Continue Sinemet Will check swallowing once patient is extubated Plan DVT prophylaxis -Lovenox Stress ulcer prophylaxis -Pepcid Nutrition -start Tube Feeds Code Status - Full Code I tried to call patient's but no one answered the phone. I spoke to patient's daughter in-law Gabriel. She told me the patient has been having difficulty with swallowing and significant coughing after eating over last few months. He was tested positive for COVID on 11/01. He received prescription of paxlovid but did not take it. He is vaccinated against COVID-19 and has received a booster doses. Total Critical Care Time - 35 minutes Due to a high probability of clinically significant, life threatening deterioration, the patient required my highest level of preparedness to intervene emergently and I personally spent this critical care time directly and personally managing the patient. This critical care time included obtaining a history; examining the patient; pulse oximetry; ordering and review of studies; arranging urgent treatment with development of a management plan; evaluation of patient's response to treatment; frequent reassessment; and discussions with other providers. It was exclusive of separately billable procedures and treating other patients and teaching time. Please see Assessment and Plan section and the rest of the note for further information on patient assessment and treatment [employer] Attorney Consult Note Consult date: 11/03/21 Reason for consult: Acute respiratory failure, COVID-19 HPI: Dwayne Hopson is a 86 year old male with a history of Parkinson's who presented to the emergency room after syncopal event at home yesterday The patient was attempting to take out his garbage when he fell.? He is abrasions to both of his knees.? The patient had a positive home COVID testing was also positive in the ED.?patient was was placed on 2 L per nasal cannula and admitted on floor. He
[2021-11-03 12:13] LABS: Glucose Point of Care 105 mg/dl (65-105)
--- NOTE | 2021-11-03 12:56 | PM.IMPN ---
Progress Note: A&P Assessment and Plan (1) Acute hypoxemic respiratory failure due to COVID-19: Code(s): U07.1 - COVID-19; J96.01 - Acute respiratory failure with hypoxia Status: Acute Assessment and Plan: Acute multifactorial Respiratory failure secondary to COVID-19, possible congestive heart failure, possible bacterial aspiration pneumonia Blood and sputum cultures Empiric Zosyn, azithromycin (2) Pneumonia: Code(s): J18.9 - Pneumonia, unspecified organism Status: Acute Assessment and Plan: Continue IV antibiotics (3) COVID-19: Code(s): U07.1 - COVID-19 Status: Acute Assessment and Plan: Isolation start dexamethasone remdesivir and Barcitinib He was tested positive for COVID on 11/01. (4) CHF (congestive heart failure): Code(s): I50.9 - Heart failure, unspecified Status: Acute Assessment and Plan: Check echocardiogram (5) Elevated troponin: Code(s): R77.8 - Other specified abnormalities of plasma proteins Status: Acute Assessment and Plan: EKG reviewed and shows no ST elevation Mild elevation troponin likely secondary to respiratory failure and demand mediated ischemia Add aspirin (6) Parkinson's disease: Code(s): G20 - Parkinson's disease Status: Acute Assessment and Plan: Continue Sinemet Will check swallowing once patient is extubated Subjective Date/time seen: 11/03/21 12:56 Intubated. Exam Narrative: General: Pt is sedated, intubated and on mechanical ventilation Lungs/Chest: Trachea central Coarse BS B/L, No crackles or wheezing. Cardiac: RRR. Normal S1 S2. No murmurs Circulation: Pedal pulses are intact and symmetrical. Abdomen: Decreased bowel sounds. Obese. Soft. NT. ND. Extremities: No clubbing, cyanosis or edema. Warm right femoral central venous catheter : Guido in place Neurologic: Unable to assess due to sedation. Moves all 4 extremities to painful stimuli. PERRL Objective Data Vital Signs Vital Signs: Vital Signs - 24 hr 11/02/21 13:39 11/02/21 14:04 11/02/21 14:04 Temperature 98.9 F Pulse Rate 74 66 Respiratory Rate 20 Blood Pressure 125/52 L Pulse Oximetry 88 L 97 Oxygen Delivery Room Air Nasal Cannula Oxygen Flow Rate 2 Fraction of Inspired Oxygen 11/02/21 14:01 11/02/21 14:16 11/02/21 15:05 Temperature Pulse Rate 71 65 70 Respiratory Rate 15 22 H 22 H Blood Pressure 113/69 132/52 L 141/42 H Pulse Oximetry 98 97 97 Oxygen Delivery Oxygen Flow Rate Fraction of Inspired Oxygen 11/02/21 15:45 11/02/21 15:46 11/02/21 15:47 Temperature Pulse Rate 70 70 74 Respiratory Rate 18 22 H 22 H Blood Pressure 158/63 H 154/79 H Pulse Oximetry 98 98 Oxygen Delivery Oxygen Flow Rate Fraction of Inspired Oxygen 11/02/21 16:00 11/02/21 16:02 11/02/21 16:17 Temperature Pulse Rate 66 67 69 Respiratory Rate 21 H 21 H 22 H Blood Pressure 157/55 H 187/57 H Pulse Oximetry 98 99 98 Oxygen Delivery Oxygen Flow Rate Fraction of Inspired Oxygen 11/02/21 16:32 11/02/21 17:53 11/02/21 18:50 Temperature Pulse Rate 77 71 75 Respiratory Rate 25 H 18 18 Blood Pressure 141/61 H 140/65 166/65 H Pulse Oximetry 100 98 95 Oxygen Delivery Oxygen Flow Rate Fraction of Inspired Oxygen 11/02/21 17:53 11/02/21 18:03 11/02/21 19:02 Temperature Pulse Rate 74 77 64 Respiratory Rate 25 H 22 H 22 H Blood Pressure 140/65 166/65 H 144/68 H Pulse Oximetry 97 93 Oxygen Delivery Oxygen Flow Rate Fraction of Inspired Oxygen 11/02/21 19:51 11/02/21 20:00 11/02/21 23:00 Temperature 98.8 F Pulse Rate 76 71 88 Respiratory Rate 23 H 22 H Blood Pressure 144/68 H 147/69 H Pulse Oximetry 97 93 98 Oxygen Delivery Mechanical Ventilation Oxygen Flow Rate Fraction of Inspired Oxygen 50 11/02/21 22:50 11/03/21 00:00 11/03/21 00:00 Temperature Pulse Rate 109 H 77 77 Respirat
[2021-11-03 17:41] LABS: Glucose Point of Care 143 mg/dl (65-105)
[2021-11-03] MEDS: REMDESIVIR 100 MG/NS 250 ML 100 MG/250 ML BAG 250 MG IVPB (21:59)
[2021-11-04] VITALS (25 sets, daily range): BP systolic 113–161; BP diastolic 56–100; PULSE 51–854; RESP 14–24; TEMP 35.9–36.6; O2SAT 95–100
[2021-11-04 01:10] LABS: Glucose Point of Care 147 mg/dl (65-105)
[2021-11-04 04:41] LABS: Basophils Percent Auto 0.1 % (0.2-1.2); Hemoglobin 10.8 g/dL (14.0-18.0); Immature Granulocyte Absolute 0.03 K/mm3 (0.00-0.031); Immature Granulocyte Percent A 0.3 % (0-0.5); Lymphocytes Absolute Auto 1.14 K/mm3 (0.9-3.2); Lymphocytes Percent Auto 9.9 % (18.3-44.2); Mean Corpuscular HGB Conc 31.8 g/dl (32-36); Mean Corpuscular Hemoglobin 30.6 pg (26-34); Mean Corpuscular Volume 96.3 fl (80-100); Mean Platelet Volume 9.9 fl (7.4-10.4); Monocytes Absolute Auto 0.6 K/mm3 (0.1-0.6); Monocytes Percent Auto 4.8 % (2.6-8.5); Neutrophils Absolute Auto 9.8 K/mm3 (1.3-6.7); Neutrophils Percent Auto 84.9 % (45.5-73.1); Platelet Count Result 178 k/mm3 (150-375); Red Blood Count 3.53 M/mm3 (4.6-6.20); Red Cell Distribution Width 13.6 % (11.5-14.5); White Blood Count 11.6 K/mm3 (4.5-10.0)
[2021-11-04 04:51] LABS: INR 1.2; Prothrombin Time 14.4 Seconds (11.1-14.7)
[2021-11-04 04:53] LABS: Alanine Aminotransferase 8 U/L (6-50); Albumin Level 3.2 g/dL (3.5-5.1); Alkaline Phosphatase 64 U/L (38-126); Anion Gap 9 mmol/L (8-16); Aspartate Amino Transferase 33 U/L (17-59); Bilirubin,Total 0.2 mg/dL (0.2-1.3); Blood Urea Nitrogen 49 mg/dL (9-20); Calcium 7.9 mg/dL (8.4-10.2); Carbon Dioxide 29 mmol/L (22-30); Chloride 97 mmol/L (98-107); Estimated CRCL calculation 31 ml/min; Estimated Glomerular Filt Rate 44; Glucose 140 mg/dL (65-110); Magnesium 1.9 mg/dL (1.6-2.3); Phosphorus 4.8 mg/dL (2.5-4.5); Potassium 4.5 mmol/L (3.4-5.0); Sodium 135 mmol/L (137-145)
[2021-11-04 05:34] LABS: Base Excess ABG 1.3 mEq/l (+/-2.0); Device VENTILATOR; Fractional Inspired Oxygen 35 %; HCO3 ABG 27.7 mEq/l (22.0-26.0); Modified Allen's Test Unable to perform; Oxygen Content ABG 18.8 %vol (16.0-22.0); Oxygen Saturation ABG 95.1 % (95.0-100.0); Oxyhemoglobin 94.9 % THb (90.0-100.0); PCO2 ABG 50.8 mmHg (35.0-45.0); PO2 ABG 79.5 mmHg (80.0-100.0); PO2 FiO2 Ratio Arterial Blood 2.27 %; Site Drawn RIGHT RADIAL; Total Hemoglobin 14.1 g/dL (12.0-18.0); pH ABG 7.354 (7.350-7.450)
[2021-11-04 05:35] LABS: Arterial Blood Gas PEEP 5 cmH2O; Arterial Blood Gas Tidal Volume 400 ml; Arterial Blood Gas Vent Mode CMV; Arterial Blood Gas Ventilator rate 24 /MIN
[2021-11-04] MEDS: SODIUM CHLORIDE 0.9% IV 1,000 ML 999 ML IV CONT (09:22)
[2021-11-04] MEDS: SODIUM CHLORIDE 0.9% IV 1,000 ML 100 ML IV CONT (09:25)
[2021-11-04] MEDS: CARBIDOPA/LEVODOPA 25/100 MG TABLET 1 TABLET PO ×3 (09:26→20:26)
[2021-11-04] MEDS: MINERAL OIL/WHITE PETROLATUM OINTMENT 1 APPLIC EACH EYE ×2 (09:26→20:25)
[2021-11-04] MEDS: ENOXAPARIN 40 MG/0.4 ML SYRINGE SUB-Q (09:26)
[2021-11-04] MEDS: FAMOTIDINE 20 MG/2 ML VIAL IV PUSH ×2 (09:26→20:26)
--- NOTE | 2021-11-04 09:35 | WPDINTPN ---
Progress Note: A&P Assessment and Plan (1) Acute hypoxemic respiratory failure due to COVID-19: Code(s): U07.1 - COVID-19; J96.01 - Acute respiratory failure with hypoxia Status: Acute Assessment and Plan: Acute multifactorial Respiratory failure secondary to COVID-19, possible congestive heart failure, possible bacterial aspiration pneumonia Patient tested positive for COVID-19. CTA negative for PE and showed bilateral ground-glass opacities consistent with pneumonia. Patient also has history of coughing as per his . Elevated WBC. Elevated BNP Continue full mechanical ventilation support to prevent hypoxemia/hypercarbia and end organ damage. ABG reviewed and shows improvement. Continue rate of 28. He is on 35% FiO2 and 5 PCXR reviewed Will perform sedation holiday and evaluate for weaning trial Low tidal volume ventilation strategy to prevent volutrauma Blood and sputum cultures Continue Empiric Zosyn, azithromycin (2) Pneumonia: Code(s): J18.9 - Pneumonia, unspecified organism Status: Acute Assessment and Plan: See above (3) COVID-19: Code(s): U07.1 - COVID-19 Status: Acute Assessment and Plan: Isolation Continue dexamethasone remdesivir and Barcitinib-renal adjusted dose He was tested positive for COVID on 11/01. He received prescription of paxlovid but did not take it. He is vaccinated against COVID-19 and has received a booster doses. (4) CHF (congestive heart failure): Code(s): I50.9 - Heart failure, unspecified Status: Acute Assessment and Plan: Echocardiogram reviewed Summary ? 1. Complete two-dimensional, color flow and Doppler transthoracic echocardiogram is performed. ? 2. Technically suboptimal study due to poor sonographic images. ? 3. Left ventricular chamber dimension is normal. ? 4. Left ventricular systolic function is normal, estimated at 55-60%. ? 5. There is mildly increased left ventricular wall thickness. ? 6. The left ventricular diastolic function is grade I diastolic dysfunction. ? 7. E/e' 8 is minimally elevated. ? 8. Right ventricular chamber dimension is mildly enlarged. ? 9. There is trivial pericardial effusio (5) Elevated troponin: Code(s): R77.8 - Other specified abnormalities of plasma proteins Status: Acute Assessment and Plan: EKG reviewed and shows no ST elevation Mild elevation troponin likely secondary to respiratory failure and demand mediated ischemia Continue aspirin (6) Parkinson's disease: Code(s): G20 - Parkinson's disease Status: Acute Assessment and Plan: Continue Sinemet Will check swallowing once patient is extubated (7) Elevated serum creatinine: Code(s): R79.89 - Other specified abnormal findings of blood chemistry Status: Acute (8) Acute kidney injury: Code(s): N17.9 - Acute kidney failure, unspecified Status: Acute Assessment and Plan: Increase in serum creatinine to 1.5 with decreased urine output IV fluid bolus and IV fluid infusion Monitor urine output electrolytes and creatinine Check CK Plan DVT prophylaxis -Lovenox Stress ulcer prophylaxis -Pepcid Nutrition -continue Tube Feeds Code Status - Full Code 11/03 I tried to call patient's but no one answered the phone. I spoke to patient's daughter in-law Gabriel. She told me the patient has been having difficulty with swallowing and significant coughing after eating over last few months. He was tested positive for COVID on 11/01. He received prescription of paxlovid but did not take it. He is vaccinated against COVID-19 and has received a booster doses. Total Critical Care Time - 30 minutes Due to a high probability of clinically significant, life threatening deterioration, the patient required my highest level of preparedness to intervene emergently and I personally spent this critical care time directly and personally managing the patient. This critic
[2021-11-04 10:22] LABS: Creatine Kinase 92 U/L (55-170)
[2021-11-04 11:06] LABS: Alveolar/Arterial O2 Gradient 98.9 mmHg; Base Excess ABG 0.6 mEq/l (+/-2.0); Fractional Inspired Oxygen 35 %; HCO3 ABG 26.6 mEq/l (22.0-26.0); Oxygen Content ABG 16.1 %vol (16.0-22.0); Oxygen Saturation ABG 96.8 % (95.0-100.0); Oxyhemoglobin 95.7 % THb (90.0-100.0); PCO2 ABG 48.7 mmHg (35.0-45.0); PO2 FiO2 Ratio Arterial Blood 2.69 %; Total Hemoglobin 11.9 g/dL (12.0-18.0); pH ABG 7.356 (7.350-7.450)
[2021-11-04 11:07] LABS: Device VENTILATOR; Modified Allen's Test Pass; Site Drawn LEFT RADIAL
[2021-11-04 11:08] LABS: Arterial Blood Gas PEEP 5 cmH2O; Arterial Blood Gas Pressure Support 5 cmH2O; Arterial Blood Gas Vent Mode SPONTANEOUS
--- NOTE | 2021-11-04 11:36 | PCNFU ---
Nutrition Follow-Up Complete: Inadequate Oral Intake as related to mechanical vent as evidenced by NPO goal: Meet estimated nutritional needs Patient is progressing towards goal. We will continue current goal. Pt current nutrition is Vital AF 1.2 at 30 ml/hr. Nutrition recommendation: goal rate at 50 ml/hr Last recorded weight is 73.8 kg, up from 71.2 kg on admit. Bowel Motility:smear Labs Reviewed: Glu 140, BUN 49, Cr 1.5, Alb 3.2, Na 135 Meds Noted:Versed, Fentanyl, Remdesivir, Zosyn, NS, Sinemet Skin: WNL Additional Notes: Patient remains on mechanical vent. Tube feeding currently on hold for possible extubated. If patient remains on tube feeding recommend to continue Vital AF 1.2 goal rate at 50 ml/hr. Free water flush 30 ml q 4 hours. Agree with diet orders. Will monitor in ICU rounds and reassessing every Sunday and Sunday.
--- NOTE | 2021-11-04 12:36 | P.PNIM_ITS ---
Progress Note: A&P Assessment and Plan (1) Acute hypoxemic respiratory failure due to COVID-19: Code(s): U07.1 - COVID-19; J96.01 - Acute respiratory failure with hypoxia Status: Acute Assessment and Plan: Acute multifactorial Respiratory failure secondary to COVID-19, possible congestive heart failure, possible bacterial aspiration pneumonia Patient tested positive for COVID-19. CTA negative for PE and showed bilateral ground-glass opacities consistent with pneumonia. Patient also has history of coughing as per his . Elevated WBC. Elevated BNP Continue full mechanical ventilation support to prevent hypoxemia/hypercarbia and end organ damage. ABG reviewed and shows improvement. Continue rate of 28. He is on 35% FiO2 and 5 PCXR reviewed Will perform sedation holiday and evaluate for weaning trial Low tidal volume ventilation strategy to prevent volutrauma Blood and sputum cultures Continue Empiric Zosyn, azithromycin (2) Pneumonia: Code(s): J18.9 - Pneumonia, unspecified organism Status: Acute Assessment and Plan: See above (3) COVID-19: Code(s): U07.1 - COVID-19 Status: Acute Assessment and Plan: Isolation Continue dexamethasone remdesivir and Barcitinib-renal adjusted dose He was tested positive for COVID on 11/01. He received prescription of paxlovid but did not take it. He is vaccinated against COVID-19 and has received a booster doses. (4) CHF (congestive heart failure): Code(s): I50.9 - Heart failure, unspecified Status: Acute Assessment and Plan: Echocardiogram reviewed Summary ? 1. Complete two-dimensional, color flow and Doppler transthoracic echocardiogram is performed. ? 2. Technically suboptimal study due to poor sonographic images. ? 3. Left ventricular chamber dimension is normal. ? 4. Left ventricular systolic function is normal, estimated at 55-60%. ? 5. There is mildly increased left ventricular wall thickness. ? 6. The left ventricular diastolic function is grade I diastolic dysfunction. ? 7. E/e' 8 is minimally elevated. ? 8. Right ventricular chamber dimension is mildly enlarged. ? 9. There is trivial pericardial effusio (5) Elevated troponin: Code(s): R77.8 - Other specified abnormalities of plasma proteins Status: Acute Assessment and Plan: EKG reviewed and shows no ST elevation Mild elevation troponin likely secondary to respiratory failure and demand mediated ischemia Continue aspirin (6) Parkinson's disease: Code(s): G20 - Parkinson's disease Status: Acute Assessment and Plan: Continue Sinemet Will check swallowing once patient is extubated (7) Elevated serum creatinine: Code(s): R79.89 - Other specified abnormal findings of blood chemistry Status: Acute (8) Acute kidney injury: Code(s): N17.9 - Acute kidney failure, unspecified Status: Acute Assessment and Plan: Increase in serum creatinine to 1.5 with decreased urine output IV fluid bolus and IV fluid infusion Monitor urine output electrolytes and creatinine Check CK Plan DVT prophylaxis -Lovenox Stress ulcer prophylaxis -Pepcid Nutrition -continue Tube Feeds Code Status - Full Code 11/03 I tried to call patient's but no one answered the phone. I spoke to patient's daughter in-law Gabriel. She told me the patient has been having difficulty with swallowing and significant coughing after eating over last few months. He was tested positive for COVID on 11/01. He received prescription of paxlovid but did not take it.
[2021-11-04] MEDS: ALBUMIN HUMAN 25% 25 GM/100 ML 100 ML IVPB ×4 (12:38→23:58)
[2021-11-04] MEDS: BARICITINIB 2 MG TABLET PO (12:39)
[2021-11-04] MEDS: hydrALAZINE HCL 20 MG/ML VIAL IV PUSH (12:41)
--- NOTE | 2021-11-04 15:10 | P.PCNBED_ITS ---
Procedures Intubation Intubation Date: 11/04/21 Intubation Time: 15:10 Consent: Emergent procedure, consent implied as patient is a full code. A pre-procedural Time-Out was completed immediately before starting the procedure and confirmed: Patient Identification, Site, Procedure, Patient Position and the Availability of Requisite Equipment: Yes Sedative: etomidate Mg given: 20 Paralytic: rocuronium Mg given: 50 Laryngoscope: fiber optic video scope Assist device used: fiber optic device (4) ET tube size: 7.5 Tube secured depth (cm): 27 Tube secured location: teeth Tube placement confirmation: visualized tube passing through cords, equal breath sounds bilaterally, no breath sounds over epigastrium and confirmation by capnometry Patient tolerated procedure: well Intubation complications: none Additional comments: Call received from Dr. Quintero to evaluate the patient for reintubation. He was reportedly extubated a few hours prior and he has become progressively more short of breath and was now with labored breathing. Upon my arrival, a code blue was being called overhead and the patient was receiving assistance with BVM per respiratory therapist. SpO2 was in the upper 80s and telemetry showed a narrow complex tachycardia with a rate in the 140s to 150s; he never lost a pulse. The patient was not responding or following commands however but he was noted to move upper extremities and was blinking. Following RSI, he was intubated easily and atraumatically with a 7.5 ET tube on first attempt using the Glidescope with direct visualization of the tube passing through the cords, CO2 colorimeter change, mist in tube, and breath sounds auscultated bilaterally. Vocal cords were moderately edematous. Chest x-ray reviewed at bedside and showed ET tube in a satisfactory position. Care turned back over to attending hospitalist and customer contact sales associate. Dr. Ernestina Richardson, attending ED physician, was aware of the procedure and was available if needed.
[2021-11-04] MEDS: MIDAZOLAM 100MG/NS 100ML(*CRX) 100 MG/100 ML BAG IV CONT (15:14)
--- NOTE | 2021-11-04 15:44 | ECG_ITS ---
Measurements Intervals [facility] Rate: 96 P: IN: 0 QRS: 93 QRSD: 143 T: 60 QT: 386 QTc: 489 Interpretive Statements ATRIAL FIBRILLATION RIGHT BUNDLE BRANCH BLOCK ABNORMAL ECG COMPARED TO ECG 11/02/2021 13:51:49 ATRIAL FIBRILLATION NOW PRESENT Electronically Signed On 11-05-2021 13:23:19 CDT by Ovi Starks M.D.
[2021-11-04 17:08] LABS: Troponin I 0.016 ng/mL (0.000-0.034)
[2021-11-04 18:03] LABS: Glucose Point of Care 165 mg/dl (65-105)
[2021-11-04] MEDS: REMDESIVIR 100 MG/NS 250 ML 100 MG/250 ML BAG 250 MG IVPB (20:25)
[2021-11-04 23:44] LABS: Troponin I 0.033 ng/mL (0.000-0.034)
[2021-11-05] VITALS (27 sets, daily range): BP systolic 106–131; BP diastolic 63–87; PULSE 51–89; RESP 19–24; TEMP 36.1–37.1; O2SAT 96–99
[2021-11-05 00:12] LABS: Glucose Point of Care 138 mg/dl (65-105)
[2021-11-05 06:03] LABS: Alveolar/Arterial O2 Gradient 97.1 mmHg; Base Excess ABG 1.4 mEq/l (+/-2.0); Carboxyhemoglobin 0.2 % THb (0-2.0); Fractional Inspired Oxygen 40 %; HCO3 ABG 26.9 mEq/l (22.0-26.0); Methemoglobin ABG 0.2 %THb (0-1.5); Oxygen Content ABG 15.5 %vol (16.0-22.0); Oxygen Saturation ABG 98.6 % (95.0-100.0); Oxyhemoglobin 97.5 % THb (90.0-100.0); PCO2 ABG 45.9 mmHg (35.0-45.0); PO2 ABG 135.3 mmHg (80.0-100.0); PO2 FiO2 Ratio Arterial Blood 3.38 %; Reduced Hemoglobin 2.1 %THb (0-5.0); Total Hemoglobin 11.1 g/dL (12.0-18.0); pH ABG 7.385 (7.350-7.450)
[2021-11-05 06:04] LABS: INR 1.3; Prothrombin Time 15.2 Seconds (11.1-14.7)
[2021-11-05 06:05] LABS: Alanine Aminotransferase 9 U/L (6-50); Albumin Level 3.4 g/dL (3.5-5.1); Alkaline Phosphatase 45 U/L (38-126); Anion Gap 9 mmol/L (8-16); Aspartate Amino Transferase 27 U/L (17-59); Bilirubin,Total 0.4 mg/dL (0.2-1.3); Blood Urea Nitrogen 49 mg/dL (9-20); Calcium 7.8 mg/dL (8.4-10.2); Carbon Dioxide 27 mmol/L (22-30); Chloride 102 mmol/L (98-107); Estimated CRCL calculation 38 ml/min; Estimated Glomerular Filt Rate 57; Glucose 133 mg/dL (65-110); Hematocrit 32.2 % (42.0-52.0); Immature Granulocyte Absolute 0.03 K/mm3 (0.00-0.031); Immature Granulocyte Percent A 0.3 % (0-0.5); Lymphocytes Absolute Auto 0.83 K/mm3 (0.9-3.2); Lymphocytes Percent Auto 9.4 % (18.3-44.2); Mean Corpuscular HGB Conc 31.1 g/dl (32-36); Mean Corpuscular Hemoglobin 30.5 pg (26-34); Mean Corpuscular Volume 98.2 fl (80-100); Mean Platelet Volume 10.2 fl (7.4-10.4); Monocytes Absolute Auto 0.7 K/mm3 (0.1-0.6); Monocytes Percent Auto 7.4 % (2.6-8.5); Neutrophils Absolute Auto 7.4 K/mm3 (1.3-6.7); Neutrophils Percent Auto 82.9 % (45.5-73.1); Phosphorus 2.9 mg/dL (2.5-4.5); Platelet Count Result 169 k/mm3 (150-375); Red Blood Count 3.28 M/mm3 (4.6-6.20); Red Cell Distribution Width 13.7 % (11.5-14.5); Sodium 138 mmol/L (137-145); White Blood Count 8.9 K/mm3 (4.5-10.0)
[2021-11-05 06:07] LABS: Device VENTILATOR; Modified Allen's Test Pass; Site Drawn RIGHT RADIAL
[2021-11-05 06:08] LABS: Arterial Blood Gas PEEP 5 cmH2O; Arterial Blood Gas Tidal Volume 400 ml; Arterial Blood Gas Vent Mode CMV; Arterial Blood Gas Ventilator rate 24 /MIN
--- NOTE | 2021-11-05 09:13 | WPDINTPN ---
Progress Note: A&P Assessment and Plan (1) Acute hypoxemic respiratory failure due to COVID-19: Code(s): U07.1 - COVID-19; J96.01 - Acute respiratory failure with hypoxia Status: Acute Assessment and Plan: Acute multifactorial Respiratory failure secondary to COVID-19, possible congestive heart failure, possible bacterial aspiration pneumonia Patient tested positive for COVID-19. CTA negative for PE and showed bilateral ground-glass opacities consistent with pneumonia. Patient also has history of coughing as per his . Elevated WBC. Elevated BNP Intubated 11/02, extubated 11/05, reintubated 11/05 11/05 patient was extubated after successful weaning but few hours later patient developed increased hypoxia and respiratory distress pain. He was unable to clear his secretions and had to be intubated Continue full mechanical ventilation support to prevent hypoxemia/hypercarbia and end organ damage. ABG reviewed Continue rate of 24. He is on 35% FiO2 and 5 PCXR reviewed -advance ET tube by 2 cm Low tidal volume ventilation strategy to prevent volutrauma Blood and sputum cultures Continue Empiric Zosyn, azithromycin Hold further IV fluids Chest x-ray reviewed (2) Pneumonia: Code(s): J18.9 - Pneumonia, unspecified organism Status: Acute Assessment and Plan: See above (3) COVID-19: Code(s): U07.1 - COVID-19 Status: Acute Assessment and Plan: Isolation Continue dexamethasone remdesivir and Barcitinib-renal adjusted dose He was tested positive for COVID on 11/01. He received prescription of paxlovid but did not take it. He is vaccinated against COVID-19 and has received a booster doses. (4) CHF (congestive heart failure): Code(s): I50.9 - Heart failure, unspecified Status: Acute Assessment and Plan: Echocardiogram reviewed Summary ? 1. Complete two-dimensional, color flow and Doppler transthoracic echocardiogram is performed. ? 2. Technically suboptimal study due to poor sonographic images. ? 3. Left ventricular chamber dimension is normal. ? 4. Left ventricular systolic function is normal, estimated at 55-60%. ? 5. There is mildly increased left ventricular wall thickness. ? 6. The left ventricular diastolic function is grade I diastolic dysfunction. ? 7. E/e' 8 is minimally elevated. ? 8. Right ventricular chamber dimension is mildly enlarged. ? 9. There is trivial pericardial effusion Hold further IV fluid (5) Elevated troponin: Code(s): R77.8 - Other specified abnormalities of plasma proteins Status: Acute Assessment and Plan: EKG reviewed and shows no ST elevation Mild elevation troponin likely secondary to respiratory failure and demand mediated ischemia Continue aspirin (6) Parkinson's disease: Code(s): G20 - Parkinson's disease Status: Acute Assessment and Plan: Continue Sinemet (7) Acute kidney injury: Code(s): N17.9 - Acute kidney failure, unspecified Status: Acute Assessment and Plan: Increase in serum creatinine to 1.5 with decreased urine output IV fluid bolus and IV fluid infusion was given Creatinine improved Monitor urine output electrolytes and creatinine Normal CK (8) Atrial fibrillation: Code(s): I48.91 - Unspecified atrial fibrillation Status: Acute Assessment and Plan: On presentation patient was in sinus rhythm with sinus arrhythmia but now patient appears to be in AFib with slow ventricular rate. Continue aspirin Change Lovenox to therapeutic dose although I am not sure patient is a good candidate for long-term outpatient anticoagulation due to his history of Parkinson's Plan DVT prophylaxis -therapeutic dose Lovenox Stress ulcer prophylaxis -Pepcid Nutrition -continue Tube Feeds Code Status - Full Code 11/03 I tried to call patient's but no one answered the phone. I spoke to patient's daughter in-law Gabriel. She told me the patient has been
[2021-11-05] MEDS: ASPIRIN 325 MG TABLET FEED TUBE (10:29)
[2021-11-05] MEDS: CARBIDOPA/LEVODOPA 25/100 MG TABLET 1 TABLET PO ×4 (10:29→20:38)
[2021-11-05] MEDS: BARICITINIB 2 MG TABLET PO (10:30)
[2021-11-05] MEDS: FAMOTIDINE 20 MG/2 ML VIAL IV PUSH ×2 (10:30→20:37)
[2021-11-05] MEDS: MINERAL OIL/WHITE PETROLATUM OINTMENT 1 APPLIC EACH EYE ×2 (10:30→20:38)
[2021-11-05] MEDS: ENOXAPARIN 80 MG/0.8 ML SYRINGE 70 MG SUB-Q ×2 (10:37→20:38)
--- NOTE | 2021-11-05 11:17 | P.PNIM_ITS ---
Progress Note: A&P Assessment and Plan (1) Acute hypoxemic respiratory failure due to COVID-19: Code(s): U07.1 - COVID-19; J96.01 - Acute respiratory failure with hypoxia Status: Acute Assessment and Plan: Acute multifactorial Respiratory failure secondary to COVID-19, possible congestive heart failure, possible bacterial aspiration pneumonia Patient tested positive for COVID-19. CTA negative for PE and showed bilateral ground-glass opacities consistent with pneumonia. Patient also has history of coughing as per his . Elevated WBC. Elevated BNP Intubated 11/02, extubated 11/05, reintubated 11/05 11/05 patient was extubated after successful weaning but few hours later patient developed increased hypoxia and respiratory distress pain. He was unable to clear his secretions and had to be intubated Continue full mechanical ventilation support to prevent hypoxemia/hypercarbia and end organ damage. ABG reviewed Continue rate of 24. He is on 35% FiO2 and 5 PCXR reviewed -advance ET tube by 2 cm Low tidal volume ventilation strategy to prevent volutrauma Blood and sputum cultures Continue Empiric Zosyn, azithromycin Hold further IV fluids Chest x-ray reviewed (2) Pneumonia: Code(s): J18.9 - Pneumonia, unspecified organism Status: Acute Assessment and Plan: See above (3) COVID-19: Code(s): U07.1 - COVID-19 Status: Acute Assessment and Plan: Isolation Continue dexamethasone remdesivir and Barcitinib-renal adjusted dose He was tested positive for COVID on 11/01. He received prescription of paxlovid but did not take it. He is vaccinated against COVID-19 and has received a booster doses. (4) CHF (congestive heart failure): Code(s): I50.9 - Heart failure, unspecified Status: Acute Assessment and Plan: Echocardiogram reviewed Summary ? 1. Complete two-dimensional, color flow and Doppler transthoracic echocardiogram is performed. ? 2. Technically suboptimal study due to poor sonographic images. ? 3. Left ventricular chamber dimension is normal. ? 4. Left ventricular systolic function is normal, estimated at 55-60%. ? 5. There is mildly increased left ventricular wall thickness. ? 6. The left ventricular diastolic function is grade I diastolic dysfunction. ? 7. E/e' 8 is minimally elevated. ? 8. Right ventricular chamber dimension is mildly enlarged. ? 9. There is trivial pericardial effusion Hold further IV fluid (5) Elevated troponin: Code(s): R77.8 - Other specified abnormalities of plasma proteins Status: Acute Assessment and Plan: EKG reviewed and shows no ST elevation Mild elevation troponin likely secondary to respiratory failure and demand me diated ischemia Continue aspirin (6) Parkinson's disease: Code(s): G20 - Parkinson's disease Status: Acute Assessment and Plan: Continue Sinemet (7) Acute kidney injury: Code(s): N17.9 - Acute kidney failure, unspecified Status: Acute Assessment and Plan: Increase in serum creatinine to 1.5 with decreased urine output IV fluid bolus and IV fluid infusion was given Creatinine improved Monitor urine output electrolytes and creatinine Normal CK (8) Atrial fibrillation: Code(s): I48.91 - Unspecified atrial fibrillation Status: Acute Assessment and Plan: On presentation patient was in sinus rhythm with sinus arrhythmia but now patient appears to be in AFib with slow ventricular rate. Continue aspirin Change Lovenox to therapeutic dose although I am not sure pa
[2021-11-05 13:06] LABS: Glucose Point of Care 150 mg/dl (65-105)
[2021-11-05 18:21] LABS: Glucose Point of Care 180 mg/dl (65-105)
[2021-11-05] MEDS: REMDESIVIR 100 MG/NS 250 ML 100 MG/250 ML BAG 250 MG IVPB (20:39)
[2021-11-05] MEDS: FENTANYL 2,500MCG/NS250ML(*CRX 2,500 MCG/250 ML BAG IV CONT (22:09)
[2021-11-06] VITALS (30 sets, daily range): BP systolic 107–178; BP diastolic 63–87; PULSE 40–106; RESP 15–24; TEMP 35.9–36.7; O2SAT 33–100
[2021-11-06 01:38] LABS: Glucose Point of Care 143 mg/dl (65-105)
[2021-11-06 05:30] LABS: Alveolar/Arterial O2 Gradient 72.2 mmHg; Base Excess ABG 2.5 mEq/l (+/-2.0); Carboxyhemoglobin 0.2 % THb (0-2.0); Fractional Inspired Oxygen 30 %; Methemoglobin ABG 0.2 %THb (0-1.5); Oxygen Content ABG 15.5 %vol (16.0-22.0); Oxygen Saturation ABG 96.4 % (95.0-100.0); Oxyhemoglobin 95.5 % THb (90.0-100.0); PCO2 ABG 47.4 mmHg (35.0-45.0); PO2 FiO2 Ratio Arterial Blood 2.87 %; Reduced Hemoglobin 4.1 %THb (0-5.0); Total Hemoglobin 11.5 g/dL (12.0-18.0)
[2021-11-06 05:31] LABS: Device VENTILATOR; Modified Allen's Test Pass; Site Drawn RIGHT RADIAL
[2021-11-06 05:32] LABS: Arterial Blood Gas Vent Mode CMV; Arterial Blood Gas Ventilator rate 24 /MIN
[2021-11-06 05:33] LABS: Arterial Blood Gas PEEP 5 cmH2O; Arterial Blood Gas Pressure Support 5 cmH2O; Arterial Blood Gas Tidal Volume 400 ml
[2021-11-06 06:53] LABS: Hematocrit 33.2 % (42.0-52.0); Hemoglobin 10.3 g/dL (14.0-18.0); Immature Granulocyte Absolute 0.02 K/mm3 (0.00-0.031); Immature Granulocyte Percent A 0.2 % (0-0.5); Lymphocytes Absolute Auto 1.01 K/mm3 (0.9-3.2); Lymphocytes Percent Auto 12.4 % (18.3-44.2); Mean Corpuscular Hemoglobin 30.4 pg (26-34); Mean Corpuscular Volume 97.9 fl (80-100); Mean Platelet Volume 10.3 fl (7.4-10.4); Monocytes Absolute Auto 0.6 K/mm3 (0.1-0.6); Monocytes Percent Auto 6.9 % (2.6-8.5); Neutrophils Absolute Auto 6.6 K/mm3 (1.3-6.7); Neutrophils Percent Auto 80.5 % (45.5-73.1); Platelet Count Result 182 k/mm3 (150-375); Red Blood Count 3.39 M/mm3 (4.6-6.20); Red Cell Distribution Width 13.9 % (11.5-14.5); White Blood Count 8.2 K/mm3 (4.5-10.0)
[2021-11-06 07:03] LABS: Alanine Aminotransferase 15 U/L (6-50); Albumin Level 3.3 g/dL (3.5-5.1); Alkaline Phosphatase 48 U/L (38-126); Anion Gap 7 mmol/L (8-16); Aspartate Amino Transferase 41 U/L (17-59); Bilirubin,Total 0.4 mg/dL (0.2-1.3); Blood Urea Nitrogen 49 mg/dL (9-20); Calcium 7.4 mg/dL (8.4-10.2); Carbon Dioxide 30 mmol/L (22-30); Chloride 102 mmol/L (98-107); Estimated CRCL calculation 41 ml/min; Estimated Glomerular Filt Rate > 60; Glucose 165 mg/dL (65-110); Phosphorus 2.3 mg/dL (2.5-4.5); Sodium 139 mmol/L (137-145)
[2021-11-06 07:07] LABS: INR 1.2; Prothrombin Time 14.9 Seconds (11.1-14.7)
[2021-11-06] MEDS: SODIUM PHOSPHATE 20 MM in DEXTROSE 5% IN WATER 250 ML 50 MM IVPB (09:14)
[2021-11-06] MEDS: ENOXAPARIN 80 MG/0.8 ML SYRINGE 70 MG SUB-Q ×2 (09:20→21:03)
[2021-11-06] MEDS: CARBIDOPA/LEVODOPA 25/100 MG TABLET 1 TABLET PO ×4 (09:21→21:03)
[2021-11-06] MEDS: ASPIRIN 325 MG TABLET FEED TUBE (09:21)
[2021-11-06] MEDS: MINERAL OIL/WHITE PETROLATUM OINTMENT 1 APPLIC EACH EYE ×2 (09:21→21:04)
[2021-11-06] MEDS: FAMOTIDINE 20 MG/2 ML VIAL IV PUSH ×2 (09:21→21:03)
--- NOTE | 2021-11-06 09:37 | WPDINTPN ---
Progress Note: A&P Assessment and Plan (1) Acute hypoxemic respiratory failure due to COVID-19: Code(s): U07.1 - COVID-19; J96.01 - Acute respiratory failure with hypoxia Status: Acute Assessment and Plan: Acute multifactorial Respiratory failure secondary to COVID-19, possible congestive heart failure, possible bacterial aspiration pneumonia Patient tested positive for COVID-19. CTA negative for PE and showed bilateral ground-glass opacities consistent with pneumonia. Patient also has history of coughing as per his . Elevated WBC. Elevated BNP Intubated 11/02, extubated 11/05, reintubated 11/05 11/05 patient was extubated after successful weaning but few hours later patient developed increased hypoxia and respiratory distress pain. He was unable to clear his secretions and had to be intubated Continue full mechanical ventilation support to prevent hypoxemia/hypercarbia and end organ damage. ABG reviewed Continue rate of 24. He is on 35% FiO2 and 5 PCXR reviewed Low tidal volume ventilation strategy to prevent volutrauma Blood and sputum cultures negative till now Continue Empiric Zosyn, azithromycin Hold further IV fluids Will perform sedation holiday and evaluate for weaning trial again today (2) Pneumonia: Code(s): J18.9 - Pneumonia, unspecified organism Status: Acute Assessment and Plan: See above (3) COVID-19: Code(s): U07.1 - COVID-19 Status: Acute Assessment and Plan: Isolation Continue dexamethasone and Barcitinib-renal adjusted dose He will complete his 5 day course of remdesivir today He was tested positive for COVID on 11/01. He received prescription of paxlovid but did not take it. He is vaccinated against COVID-19 and has received a booster doses. (4) CHF (congestive heart failure): Code(s): I50.9 - Heart failure, unspecified Status: Acute Assessment and Plan: Echocardiogram reviewed Summary ? 1. Complete two-dimensional, color flow and Doppler transthoracic echocardiogram is performed. ? 2. Technically suboptimal study due to poor sonographic images. ? 3. Left ventricular chamber dimension is normal. ? 4. Left ventricular systolic function is normal, estimated at 55-60%. ? 5. There is mildly increased left ventricular wall thickness. ? 6. The left ventricular diastolic function is grade I diastolic dysfunction. ? 7. E/e' 8 is minimally elevated. ? 8. Right ventricular chamber dimension is mildly enlarged. ? 9. There is trivial pericardial effusion Hold further IV fluid (5) Elevated troponin: Code(s): R77.8 - Other specified abnormalities of plasma proteins Status: Acute Assessment and Plan: EKG reviewed and shows no ST elevation Mild elevation troponin likely secondary to respiratory failure and demand mediated ischemia Continue aspirin (6) Parkinson's disease: Code(s): G20 - Parkinson's disease Status: Acute Assessment and Plan: Continue Sinemet (7) Acute kidney injury: Code(s): N17.9 - Acute kidney failure, unspecified Status: Acute Assessment and Plan: Increase in serum creatinine to 1.5 with decreased urine output IV fluid bolus and IV fluid infusion was given Creatinine improved Monitor urine output electrolytes and creatinine Normal CK (8) Atrial fibrillation: Code(s): I48.91 - Unspecified atrial fibrillation Status: Acute Assessment and Plan: On presentation patient was in sinus rhythm with sinus arrhythmia but now patient appears to be in AFib with slow ventricular rate. Continue aspirin Continue Lovenox 1 milligram/kg twice a day I am not sure patient is a good candidate for long-term outpatient anticoagulation due to his history of Parkinson's (9) Electrolyte abnormality: Code(s): E87.8 - Other disorders of electrolyte and fluid balance, not elsewhere classified Status: Acute Assessment and Plan: Replace low phosph
[2021-11-06] MEDS: BARICITINIB 2 MG TABLET 4 MG PO (10:29)
--- NOTE | 2021-11-06 10:51 | P.PNIM_ITS ---
Progress Note: A&P Assessment and Plan (1) Acute hypoxemic respiratory failure due to COVID-19: Code(s): U07.1 - COVID-19; J96.01 - Acute respiratory failure with hypoxia Status: Acute Assessment and Plan: Acute multifactorial Respiratory failure secondary to COVID-19, possible congestive heart failure, possible bacterial aspiration pneumonia Patient tested positive for COVID-19. CTA negative for PE and showed bilateral ground-glass opacities consistent with pneumonia. Patient also has history of coughing as per his . Elevated WBC. Elevated BNP Intubated 11/02, extubated 11/05, reintubated 11/05 11/05 patient was extubated after successful weaning but few hours later patient developed increased hypoxia and respiratory distress pain. He was unable to clear his secretions and had to be intubated Continue full mechanical ventilation support to prevent hypoxemia/hypercarbia and end organ damage. ABG reviewed Continue rate of 24. He is on 35% FiO2 and 5 PCXR reviewed Low tidal volume ventilation strategy to prevent volutrauma Blood and sputum cultures negative till now Continue Empiric Zosyn, azithromycin Hold further IV fluids Will perform sedation holiday and evaluate for weaning trial again today (2) Pneumonia: Code(s): J18.9 - Pneumonia, unspecified organism Status: Acute Assessment and Plan: See above (3) COVID-19: Code(s): U07.1 - COVID-19 Status: Acute Assessment and Plan: Isolation Continue dexamethasone and Barcitinib-renal adjusted dose He will complete his 5 day course of remdesivir today He was tested positive for COVID on 11/01. He received prescription of paxlovid but did not take it. He is vaccinated against COVID-19 and has received a booster doses. (4) CHF (congestive heart failure): Code(s): I50.9 - Heart failure, unspecified Status: Acute Assessment and Plan: Echocardiogram reviewed Summary ? 1. Complete two-dimensional, color flow and Doppler transthoracic echocardiogram is performed. ? 2. Technically suboptimal study due to poor sonographic images. ? 3. Left ventricular chamber dimension is normal. ? 4. Left ventricular systolic function is normal, estimated at 55-60%. ? 5. There is mildly increased left ventricular wall thickness. ? 6. The left ventricular diastolic function is grade I diastolic dysfunction. ? 7. E/e' 8 is minimally elevated. ? 8. Right ventricular chamber dimension is mildly enlarged. ? 9. There is trivial pericardial effusion Hold further IV fluid (5) Elevated troponin: Code(s): R77.8 - Other specified abnormalities of plasma proteins Status: Acute Assessment and Plan: EKG reviewed and shows no ST elevation Mild elevation troponin likely secondary to respiratory failure and demand mediated ischemia Continue aspirin (6) Parkinson's disease: Code(s): G20 - Parkinson's disease Status: Acute Assessment and Plan: Continue Sinemet (7) Acute kidney injury: Code(s): N17.9 - Acute kidney failure, unspecified Status: Acute Assessment and Plan: Increase in serum creatinine to 1.5 with decreased urine output IV fluid bolus and IV fluid infusion was given Creatinine improved Monitor urine output electrolytes and creatinine Normal CK (8) Atrial fibrillation: Code(s): I48.91 - Unspecified atrial fibrillation Status: Acute Assessment and Plan: On presentation patient was in sinus rhythm with sinus arrhythmia but now patient appears to be in AFib with slow ventricular
[2021-11-06 13:16] LABS: Glucose Point of Care 153 mg/dl (65-105)
[2021-11-06 18:51] LABS: Glucose Point of Care 147 mg/dl (65-105)
[2021-11-06] MEDS: REMDESIVIR 100 MG/NS 250 ML 100 MG/250 ML BAG 250 MG IVPB (21:00)
[2021-11-06] MEDS: MIDAZOLAM 100MG/NS 100ML(*CRX) 100 MG/100 ML BAG IV CONT (21:02)
[2021-11-07] VITALS (26 sets, daily range): BP systolic 126–165; BP diastolic 50–95; PULSE 43–113; RESP 13–24; TEMP 35.8–36.6; O2SAT 96–100
[2021-11-07 04:39] LABS: Hematocrit 33.7 % (42.0-52.0); Hemoglobin 10.5 g/dL (14.0-18.0); Immature Granulocyte Absolute 0.03 K/mm3 (0.00-0.031); Immature Granulocyte Percent A 0.4 % (0-0.5); Lymphocytes Absolute Auto 1.03 K/mm3 (0.9-3.2); Mean Corpuscular HGB Conc 31.2 g/dl (32-36); Mean Corpuscular Hemoglobin 30.3 pg (26-34); Mean Corpuscular Volume 97.4 fl (80-100); Mean Platelet Volume 10.1 fl (7.4-10.4); Monocytes Absolute Auto 0.5 K/mm3 (0.1-0.6); Monocytes Percent Auto 6.2 % (2.6-8.5); Neutrophils Absolute Auto 6.4 K/mm3 (1.3-6.7); Neutrophils Percent Auto 80.4 % (45.5-73.1); Platelet Count Result 184 k/mm3 (150-375); Red Blood Count 3.46 M/mm3 (4.6-6.20); Red Cell Distribution Width 13.9 % (11.5-14.5); White Blood Count 7.9 K/mm3 (4.5-10.0)
[2021-11-07 04:51] LABS: Alanine Aminotransferase 13 U/L (6-50); Albumin Level 3.1 g/dL (3.5-5.1); Alkaline Phosphatase 47 U/L (38-126); Anion Gap 5 mmol/L (8-16); Aspartate Amino Transferase 38 U/L (17-59); Bilirubin,Total 0.3 mg/dL (0.2-1.3); Blood Urea Nitrogen 40 mg/dL (9-20); Calcium 7.6 mg/dL (8.4-10.2); Carbon Dioxide 33 mmol/L (22-30); Chloride 101 mmol/L (98-107); Estimated CRCL calculation 50 ml/min; Estimated Glomerular Filt Rate > 60; Glucose 147 mg/dL (65-110); Phosphorus 2.9 mg/dL (2.5-4.5); Potassium 4.1 mmol/L (3.4-5.0); Sodium 139 mmol/L (137-145)
[2021-11-07 05:17] LABS: Alveolar/Arterial O2 Gradient 118.4 mmHg; Base Excess ABG 3.1 mEq/l (+/-2.0); Carboxyhemoglobin 0.3 % THb (0-2.0); Fractional Inspired Oxygen 30 %; HCO3 ABG 29.2 mEq/l (22.0-26.0); Methemoglobin ABG 0.3 %THb (0-1.5); Oxygen Content ABG 11.4 %vol (16.0-22.0); PCO2 ABG 51.2 mmHg (35.0-45.0); PO2 FiO2 Ratio Arterial Blood 1.18 %; Reduced Hemoglobin 31.1 %THb (0-5.0); Total Hemoglobin 11.9 g/dL (12.0-18.0); pH ABG 7.374 (7.350-7.450)
[2021-11-07 05:21] LABS: Oxygen Saturation ABG 65.3 % (95.0-100.0); PO2 ABG 35.3 mmHg (80.0-100.0)
[2021-11-07 05:22] LABS: Modified Allen's Test Pass; Oxyhemoglobin 68.3 % THb (90.0-100.0); Site Drawn RIGHT RADIAL
[2021-11-07 05:23] LABS: Arterial Blood Gas PEEP 5 cmH2O; Arterial Blood Gas Vent Mode CMV; Arterial Blood Gas Ventilator rate 24 /MIN; Device VENTILATOR
[2021-11-07 05:24] LABS: Arterial Blood Gas Tidal Volume 400 ml
[2021-11-07 07:11] LABS: Alveolar/Arterial O2 Gradient 72.3 mmHg; Base Excess ABG 2.7 mEq/l (+/-2.0); Fractional Inspired Oxygen 30 %; HCO3 ABG 27.8 mEq/l (22.0-26.0); Oxygen Content ABG 16.1 %vol (16.0-22.0); Oxygen Saturation ABG 96.9 % (95.0-100.0); Oxyhemoglobin 95.6 % THb (90.0-100.0); PCO2 ABG 44.6 mmHg (35.0-45.0); PO2 ABG 89.2 mmHg (80.0-100.0); PO2 FiO2 Ratio Arterial Blood 2.97 %; Total Hemoglobin 11.9 g/dL (12.0-18.0); pH ABG 7.412 (7.350-7.450)
[2021-11-07 07:13] LABS: Arterial Blood Gas PEEP 5 cmH2O; Arterial Blood Gas Vent Mode CMV; Arterial Blood Gas Ventilator rate 24 /MIN; Device VENTILATOR; Modified Allen's Test Pass; Site Drawn RIGHT RADIAL
[2021-11-07 07:14] LABS: Arterial Blood Gas Tidal Volume 400 ml
[2021-11-07] MEDS: CARBIDOPA/LEVODOPA 25/100 MG TABLET 1 TABLET PO ×4 (08:39→20:59)
[2021-11-07] MEDS: ASPIRIN 325 MG TABLET FEED TUBE (08:39)
[2021-11-07] MEDS: FAMOTIDINE 20 MG/2 ML VIAL IV PUSH ×2 (08:40→20:59)
[2021-11-07] MEDS: ENOXAPARIN 80 MG/0.8 ML SYRINGE 70 MG SUB-Q ×2 (08:40→20:59)
[2021-11-07] MEDS: MINERAL OIL/WHITE PETROLATUM OINTMENT 1 APPLIC EACH EYE ×2 (08:40→21:01)
--- NOTE | 2021-11-07 09:12 | WPDINTPN ---
Progress Note: A&P Assessment and Plan (1) Acute hypoxemic respiratory failure due to COVID-19: Code(s): U07.1 - COVID-19; J96.01 - Acute respiratory failure with hypoxia Status: Acute Assessment and Plan: Acute multifactorial Respiratory failure secondary to COVID-19, possible congestive heart failure, possible bacterial aspiration pneumonia Patient tested positive for COVID-19. CTA negative for PE and showed bilateral ground-glass opacities consistent with pneumonia. Patient also has history of coughing as per his . Elevated WBC. Elevated BNP Intubated 11/02, extubated 11/05, reintubated 11/05 11/05 patient was extubated after successful weaning but few hours later patient developed increased hypoxia and respiratory distress pain. He was unable to clear his secretions and had to be intubated 11/06 tolerated PSV adequate RSBI but could not be extubated due to mental status. He was agitated and following commands. Continue full mechanical ventilation support to prevent hypoxemia/hypercarbia and end organ damage. ABG reviewed Continue rate of 24. He is on 35% FiO2 and 5 PCXR reviewed - Left basilar airspace opacities, consistent with atelectasis versus pneumonia. Low tidal volume ventilation strategy to prevent volutrauma Blood and sputum cultures negative till now Continue Empiric Zosyn, azithromycin Hold further IV fluids Will perform sedation holiday and evaluate for weaning trial again today (2) Pneumonia: Code(s): J18.9 - Pneumonia, unspecified organism Status: Acute Assessment and Plan: See above (3) COVID-19: Code(s): U07.1 - COVID-19 Status: Acute Assessment and Plan: Isolation Continue dexamethasone and Barcitinib-renal adjusted dose He will complete his 5 day course of remdesivir today He was tested positive for COVID on 11/01. He received prescription of paxlovid but did not take it. He is vaccinated against COVID-19 and has received a booster doses. (4) CHF (congestive heart failure): Code(s): I50.9 - Heart failure, unspecified Status: Acute Assessment and Plan: Echocardiogram reviewed Summary ? 1. Complete two-dimensional, color flow and Doppler transthoracic echocardiogram is performed. ? 2. Technically suboptimal study due to poor sonographic images. ? 3. Left ventricular chamber dimension is normal. ? 4. Left ventricular systolic function is normal, estimated at 55-60%. ? 5. There is mildly increased left ventricular wall thickness. ? 6. The left ventricular diastolic function is grade I diastolic dysfunction. ? 7. E/e' 8 is minimally elevated. ? 8. Right ventricular chamber dimension is mildly enlarged. ? 9. There is trivial pericardial effusion Hold further IV fluid (5) Elevated troponin: Code(s): R77.8 - Other specified abnormalities of plasma proteins Status: Acute Assessment and Plan: EKG reviewed and shows no ST elevation Mild elevation troponin likely secondary to respiratory failure and demand mediated ischemia Continue aspirin (6) Parkinson's disease: Code(s): G20 - Parkinson's disease Status: Acute Assessment and Plan: Continue Sinemet (7) Acute kidney injury: Code(s): N17.9 - Acute kidney failure, unspecified Status: Acute Assessment and Plan: Increase in serum creatinine to 1.5 with decreased urine output IV fluid bolus and IV fluid infusion was given Creatinine improved Monitor urine output electrolytes and creatinine Normal CK (8) Atrial fibrillation: Code(s): I48.91 - Unspecified atrial fibrillation Status: Acute Assessment and Plan: On presentation patient was in sinus rhythm with sinus arrhythmia but now patient appears to be in AFib with slow ventricular rate. Continue aspirin Continue Lovenox 1 milligram/kg twice a day I am not sure patient is a good candidate for long-term outpatient anticoagulation due to his history of [place]
--- NOTE | 2021-11-07 09:19 | PCRCNOTE ---
pt placed on 5/5 SBT at 9:15. pt immediately vent apneic and the ventilator went into back up SIMV mode. pt placed back on CMV
--- NOTE | 2021-11-07 10:28 | PM.IMPN ---
Progress Note: A&P Assessment and Plan (1) Acute hypoxemic respiratory failure due to COVID-19: Code(s): U07.1 - COVID-19; J96.01 - Acute respiratory failure with hypoxia Status: Acute Assessment and Plan: Acute multifactorial Respiratory failure secondary to COVID-19, possible congestive heart failure, possible bacterial aspiration pneumonia Patient tested positive for COVID-19. CTA negative for PE and showed bilateral ground-glass opacities consistent with pneumonia. Blood and sputum cultures negative till now Continue Empiric Zosyn, azithromycin Hold further IV fluids Will perform sedation holiday and evaluate for weaning trial again today (2) Pneumonia: Code(s): J18.9 - Pneumonia, unspecified organism Status: Acute Assessment and Plan: See above (3) COVID-19: Code(s): U07.1 - COVID-19 Status: Acute Assessment and Plan: Isolation Continue dexamethasone and Barcitinib-renal adjusted dose He will complete his 5 day course of remdesivir today He was tested positive for COVID on 11/01. He received prescription of paxlovid but did not take it. He is vaccinated against COVID-19 and has received a booster doses. (4) CHF (congestive heart failure): Code(s): I50.9 - Heart failure, unspecified Status: Acute Assessment and Plan: Continue to monitor volume status (5) Elevated troponin: Code(s): R77.8 - Other specified abnormalities of plasma proteins Status: Acute Assessment and Plan: Continue aspirin (6) Parkinson's disease: Code(s): G20 - Parkinson's disease Status: Acute Assessment and Plan: Continue Sinemet (7) Acute kidney injury: Code(s): N17.9 - Acute kidney failure, unspecified Status: Acute Assessment and Plan: Increase in serum creatinine to 1.5 with decreased urine output IV fluid bolus and IV fluid infusion was given Creatinine improved Monitor urine output electrolytes and creatinine Normal CK (8) Atrial fibrillation: Code(s): I48.91 - Unspecified atrial fibrillation Status: Acute Assessment and Plan: On presentation patient was in sinus rhythm with sinus arrhythmia but now patient appears to be in AFib with slow ventricular rate. Continue aspirin Continue Lovenox 1 milligram/kg twice a day I am not sure patient is a good candidate for long-term outpatient anticoagulation due to his history of Parkinson's (9) Electrolyte abnormality: Code(s): E87.8 - Other disorders of electrolyte and fluid balance, not elsewhere classified Status: Acute Assessment and Plan: Replace low phosphate Plan DVT prophylaxis -therapeutic dose Lovenox Stress ulcer prophylaxis -Pepcid Nutrition -continue Tube Feeds Code Status - Full Code 11/03 I tried to call patient's but no one answered the phone. I spoke to patient's daughter in-law Gabriel. She told me the patient has been having difficulty with swallowing and significant coughing after eating over last few months. He was tested positive for COVID on 11/01. He received prescription of paxlovid but did not take it. He is vaccinated against COVID-19 and has received a booster doses. 11/05 spoke to patient's daughter in-law Gabriel and updated her with patient's status and events from yesterday including extubation and re-intubation. I answered all questions Total Critical Care Time - 30 minutes Due to a high probability of clinically significant, life threatening deterioration, the patient required my highest level of preparedness to intervene emergently and I personally spent this critical care time directly and personally managing the patient. This critical care time included obtaining a history; examining the patient; pulse oximetry; ordering and review of studies; arranging urgent treatment with development of a management plan; evaluation of patient's response to treatment; frequent reassessment; a
--- NOTE | 2021-11-07 10:45 | PCFNICU ---
ICU Rounding Note: Pt current nutrition is Vital AF 1.2 at 50 ml/hr. Last recorded weight is 73.8 kg, up from up 71.2 kg on admit. Bowel Motility:+Bm reported 11/07 Labs Reviewed:Glu 147, BUN 40, Alb 3.1,Hct 33.7,Hgb 10.5 Meds Noted:Zosyn, Lovenox, Sinemet, Pepcid Skin: WNL Additional Notes: Patient remains on mechanical vent and tube feedings of Vital AF 1.2 at 50 ml/hr. Nursing reported 250 ml residual this morning. Plans to continue tube feedings. Free water flush 30 ml q 4 hours. Agree with diet orders. Following daily in ICU rounds. Will monitor every Sunday and Sunday.
[2021-11-07] MEDS: BARICITINIB 2 MG TABLET 4 MG PO (11:35)
[2021-11-07] MEDS: hydrALAZINE HCL 20 MG/ML VIAL IV PUSH (15:05)
--- NOTE | 2021-11-07 15:51 | PC.NURSE ---
Patient noted to have self-extubated. SpO2 97% on [address] Hammond notified.
[2021-11-07] MEDS: ALBUTEROL SULFATE NEB 2.5 MG/3 ML INH 1.25 MG INHALATION (16:09)
[2021-11-07] MEDS: IPRATROPIUM BR 0.02% INH SOLN 0.5 MG/2.5 ML VIAL INHALATION (16:10)
[2021-11-07] MEDS: dexmedeTOMIDine 400 MCG/100 ML 400 MCG/100 ML BAG IV CONT (16:22)
--- NOTE | 2021-11-07 16:58 | P.PNCROSS_ITS ---
Event Note Event Note Event Note: The patient extubated himself. I was called to reintubate. However the patien t's oxygen level was in the upper 90s to 100%. The patient was having some retractions. We placed him on a BiPAP 02/28 and he appeared to be doing well with that. We will monitor him closely and in the event that he continues to have stridor then I will reintubate him.
[2021-11-07] MEDS: FUROSEMIDE INJ 40 MG/4 ML VIAL IV PUSH (17:46)
--- NOTE | 2021-11-07 23:10 | PC.NURSE ---
Patient extremely agitated and became combative when changing his bed. I orally suctioned patient and removed a large amount of secretions and patient yelled sat me to stop this, get away from me . I explained what I was doing and why and he tried to sit up and yelled get away from me . He was pinching and grabbing at me with his hands. He continued to try and sit up and get out of bed. The patient is very strong and easily moves himself down the bed. I have turned up the precedex to help calm patient.
[2021-11-08] VITALS (22 sets, daily range): BP systolic 87–180; BP diastolic 51–82; PULSE 45–99; RESP 14–20; TEMP 35.4–35.9; O2SAT 80–100
[2021-11-08] MEDS: hydrALAZINE HCL 20 MG/ML VIAL IV PUSH (00:06)
--- NOTE | 2021-11-08 01:59 | PC.NURSE ---
Patient is agitated and yelling and when I checked on him, the Patient pinched and kicked me, housekeeping aid is aware.
[2021-11-08] MEDS: dexmedeTOMIDine 400 MCG/100 ML 400 MCG/100 ML BAG 27.68 MCG IV CONT ×2 (02:05→04:55)
[2021-11-08 03:17] LABS: Basophils Percent Auto 0.1 % (0.2-1.2); Hematocrit 36.4 % (42.0-52.0); Hemoglobin 11.5 g/dL (14.0-18.0); Immature Granulocyte Absolute 0.09 K/mm3 (0.00-0.031); Immature Granulocyte Percent A 0.6 % (0-0.5); Lymphocytes Absolute Auto 1.87 K/mm3 (0.9-3.2); Lymphocytes Percent Auto 11.5 % (18.3-44.2); Mean Corpuscular HGB Conc 31.6 g/dl (32-36); Mean Corpuscular Hemoglobin 30.1 pg (26-34); Mean Corpuscular Volume 95.3 fl (80-100); Mean Platelet Volume 9.7 fl (7.4-10.4); Monocytes Absolute Auto 1.2 K/mm3 (0.1-0.6); Monocytes Percent Auto 7.3 % (2.6-8.5); Neutrophils Absolute Auto 13.1 K/mm3 (1.3-6.7); Neutrophils Percent Auto 80.5 % (45.5-73.1); Platelet Count Result 223 k/mm3 (150-375); Red Blood Count 3.82 M/mm3 (4.6-6.20); Red Cell Distribution Width 13.7 % (11.5-14.5); White Blood Count 16.2 K/mm3 (4.5-10.0)
[2021-11-08 03:29] LABS: Alanine Aminotransferase 11 U/L (6-50); Albumin Level 3.5 g/dL (3.5-5.1); Alkaline Phosphatase 55 U/L (38-126); Anion Gap 6 mmol/L (8-16); Aspartate Amino Transferase 34 U/L (17-59); Bilirubin,Total 0.5 mg/dL (0.2-1.3); Blood Urea Nitrogen 42 mg/dL (9-20); Calcium 8.1 mg/dL (8.4-10.2); Carbon Dioxide 35 mmol/L (22-30); Chloride 98 mmol/L (98-107); Estimated CRCL calculation 41 ml/min; Estimated Glomerular Filt Rate > 60; Glucose 127 mg/dL (65-110); Magnesium 1.8 mg/dL (1.6-2.3); Phosphorus 2.6 mg/dL (2.5-4.5); Potassium 3.5 mmol/L (3.4-5.0); Sodium 139 mmol/L (137-145)
[2021-11-08] MEDS: RAPID SEQUENCE INTUBATION KIT 1 EACH (06:20)
[2021-11-08] MEDS: ROCURONIUM BROMIDE 50 MG/5 ML VIAL 70 MG IV PUSH (06:30)
[2021-11-08] MEDS: FENTANYL 2,500MCG/NS250ML(*CRX 2,500 MCG/250 ML BAG IV CONT (06:30)
[2021-11-08] MEDS: ETOMIDATE 20 MG/10 ML AMPUL 15 MG IV PUSH (06:30)
[2021-11-08] MEDS: MIDAZOLAM 100MG/NS 100ML(*CRX) 100 MG/100 ML BAG IV CONT (06:30)
--- NOTE | 2021-11-08 06:55 | WPDPROCEDUR ---
Procedures Intubation Intubation Date: 11/08/21 Intubation Time: 06:30 Sedative: etomidate Mg given: 15 Paralytic: rocuronium Mg given: 70 ET tube size: 7.5 Tube secured depth (cm): 27 Tube secured location: lips Tube placement confirmation: visualized tube passing through cords, equal breath sounds bilaterally, no breath sounds over epigastrium and confirmation by capnometry Patient tolerated procedure: well Intubation complications: none
--- NOTE | 2021-11-08 07:02 | PC.NURSE ---
Patient rhythm changed and he was having frequent pvc's and at 0610 his oxygen saturations began to drop quickly, the lowest I saw was 50%. I immediately began to bag-mask patient and asked the charge to call Dr. Roe to assess to intubate. She intubated with no adverse events and patient was placed on a ventilator. I called the prior to intubation and after to update her on the situation.
[2021-11-08] MEDS: ENOXAPARIN 80 MG/0.8 ML SYRINGE 70 MG SUB-Q (08:32)
[2021-11-08] MEDS: MINERAL OIL/WHITE PETROLATUM OINTMENT 1 APPLIC EACH EYE (08:33)
[2021-11-08] MEDS: ASPIRIN 325 MG TABLET FEED TUBE (08:33)
[2021-11-08] MEDS: CARBIDOPA/LEVODOPA 25/100 MG TABLET 1 TABLET PO (08:33)
[2021-11-08] MEDS: FAMOTIDINE 20 MG/2 ML VIAL IV PUSH (08:33)
--- NOTE | 2021-11-08 09:40 | WPDINTPN ---
Progress Note: A&P Assessment and Plan (1) Acute hypoxemic respiratory failure due to COVID-19: Code(s): U07.1 - COVID-19; J96.01 - Acute respiratory failure with hypoxia Status: Acute Assessment and Plan: Acute multifactorial Respiratory failure secondary to COVID-19, possible congestive heart failure, possible bacterial aspiration pneumonia Patient tested positive for COVID-19. CTA negative for PE and showed bilateral ground-glass opacities consistent with pneumonia. Patient also has history of coughing as per his . Elevated WBC. Elevated BNP Intubated 11/02, extubated 11/05, reintubated 11/05 -self-extubated on 11/07 intubated in the early hours of 11/08 Patient has been not tolerating breathing trials due to poor mental status Continue full mechanical ventilation support to prevent hypoxemia/hypercarbia and end organ damage. ABG reviewed Continue rate of 24. He is on 50% FiO2 and PEEP of 5 11/08 PCXR reviewed - Endotracheal tube and nasogastric tube in expected positions. Decrease in subtle opacities in bilateral lower lung zones, left greater than right consistent with improving pneumonia and/or atelectasis. -Low tidal volume ventilation strategy to prevent volutrauma -Blood and sputum cultures negative till now -Continue Empiric Zosyn, patient status post 5 days of azithromycin (2) Pneumonia: Code(s): J18.9 - Pneumonia, unspecified organism Status: Acute Assessment and Plan: See above (3) COVID-19: Code(s): U07.1 - COVID-19 Status: Acute Assessment and Plan: Isolation Continue dexamethasone and Barcitinib-renal adjusted dose He will complete his 5 day course of remdesivir today He was tested positive for COVID on 11/01. He received prescription of paxlovid but did not take it. He is vaccinated against COVID-19 and has received a booster doses. (4) CHF (congestive heart failure): Code(s): I50.9 - Heart failure, unspecified Status: Acute Assessment and Plan: Echocardiogram reviewed Summary ? 1. Complete two-dimensional, color flow and Doppler transthoracic echocardiogram is performed. ? 2. Technically suboptimal study due to poor sonographic images. ? 3. Left ventricular chamber dimension is normal. ? 4. Left ventricular systolic function is normal, estimated at 55-60%. ? 5. There is mildly increased left ventricular wall thickness. ? 6. The left ventricular diastolic function is grade I diastolic dysfunction. ? 7. E/e' 8 is minimally elevated. ? 8. Right ventricular chamber dimension is mildly enlarged. ? 9. There is trivial pericardial effusion Hold further IV fluid (5) Elevated troponin: Code(s): R77.8 - Other specified abnormalities of plasma proteins Status: Acute Assessment and Plan: EKG reviewed and shows no ST elevation Mild elevation troponin likely secondary to respiratory failure and demand mediated ischemia Continue aspirin (6) Parkinson's disease: Code(s): G20 - Parkinson's disease Status: Acute Assessment and Plan: Continue Sinemet (7) Acute kidney injury: Code(s): N17.9 - Acute kidney failure, unspecified Status: Acute Assessment and Plan: 11/04: Increase in serum creatinine to 1.5 with decreased urine output IV fluid bolus and IV fluid infusion was given Creatinine improved to normal Monitor urine output electrolytes and creatinine Normal CK (8) Atrial fibrillation: Code(s): I48.91 - Unspecified atrial fibrillation Status: Acute Assessment and Plan: On presentation patient was in sinus rhythm with sinus arrhythmia but now patient appears to be in AFib with slow ventricular rate. Continue aspirin Continue Lovenox 1 milligram/kg twice a day I am not sure patient is a good candidate for long-term outpatient anticoagulation due to his history of Parkinson's (9) Electrolyte abnormality: Code(s): E87.8 - Other disorders of electrolyte and
--- NOTE | 2021-11-08 10:22 | PM.IMPN ---
Progress Note: A&P Assessment and Plan (1) Acute hypoxemic respiratory failure due to COVID-19: Code(s): U07.1 - COVID-19; J96.01 - Acute respiratory failure with hypoxia Status: Acute Assessment and Plan: Acute multifactorial Respiratory failure secondary to COVID-19, possible congestive heart failure, possible bacterial aspiration pneumonia Patient tested positive for COVID-19. CTA negative for PE and showed bilateral ground-glass opacities consistent with pneumonia. Currently on Zosyn, dexamethasone, baricitinib Continue intubation and respiratory support by ICU physician (2) Pneumonia: Code(s): J18.9 - Pneumonia, unspecified organism Status: Acute Assessment and Plan: See above (3) COVID-19: Code(s): U07.1 - COVID-19 Status: Acute Assessment and Plan: Isolation Continue dexamethasone and Barcitinib-renal adjusted dose He will complete his 5 day course of remdesivir today He was tested positive for COVID on 11/01. He received prescription of paxlovid but did not take it. He is vaccinated against COVID-19 and has received a booster doses. (4) CHF (congestive heart failure): Code(s): I50.9 - Heart failure, unspecified Status: Acute Assessment and Plan: Monitor volume status. Fluids and IV diuretics per ICU (5) Elevated troponin: Code(s): R77.8 - Other specified abnormalities of plasma proteins Status: Acute Assessment and Plan: EKG reviewed and shows no ST elevation Mild elevation troponin likely secondary to respiratory failure and demand mediated ischemia Continue aspirin (6) Parkinson's disease: Code(s): G20 - Parkinson's disease Status: Acute Assessment and Plan: Continue Sinemet (7) Acute kidney injury: Code(s): N17.9 - Acute kidney failure, unspecified Status: Acute Assessment and Plan: Monitor kidney function, monitor electrolytes (8) Atrial fibrillation: Code(s): I48.91 - Unspecified atrial fibrillation Status: Acute Assessment and Plan: On presentation patient was in sinus rhythm with sinus arrhythmia but now patient appears to be in AFib with slow ventricular rate. Continue aspirin On full-dose Lovenox (9) Electrolyte abnormality: Code(s): E87.8 - Other disorders of electrolyte and fluid balance, not elsewhere classified Status: Acute Assessment and Plan: Electrolytes within normal limits Subjective Date/time seen: 11/08/21 10:22 Intubated Exam Narrative: General: Pt is sedated, intubated and on mechanical ventilation Lungs/Chest: Trachea central Coarse BS B/L, No crackles or wheezing. Cardiac: RRR. Normal S1 S2. No murmurs Circulation: Pedal pulses are intact and symmetrical. Abdomen: Decreased bowel sounds. Obese. Soft. NT. ND. Extremities: No clubbing, cyanosis or edema. Warm right femoral central venous catheter : Guido in place Neurologic: Unable to assess due to sedation. Moves all 4 extremities to painful stimuli. PERRL Objective Data Vital Signs Vital Signs: Vital Signs - 24 hr 11/07/21 11:20 11/07/21 12:00 11/07/21 12:00 Temperature 97.4 F L Pulse Rate 76 89 89 Respiratory Rate 13 Blood Pressure 152/86 H Pulse Oximetry 99 96 Oxygen Delivery Mechanical Ventilation Fraction of Inspired Oxygen 25 11/07/21 13:00 11/07/21 12:00 11/07/21 12:00 Temperature Pulse Rate 94 89 Respiratory Rate 13 Blood Pressure Pulse Oximetry 96 Oxygen Delivery Mechanical Ventilation Fraction of Inspired Oxygen 30 30 11/07/21 13:30 11/07/21 13:31 11/07/21 14:00 Temperature Pulse Rate 97 97 96 Respiratory Rate 16 20 Blood Pressure Pulse Oximetry Oxygen Delivery Fraction of Inspired Oxygen 11/07/21 14:00 11/07/21 14:17 11/07/21 16:10 Temperature 97.8 F Pulse Rate 96 84 112 H Respiratory Rate 19 19 Blood Pressure 165/78 H Pulse Oximetry 97 96 Oxygen
--- NOTE | 2021-11-08 11:26 | PCNFU ---
Nutrition Follow-Up Complete: Inadequate Oral Intake as related to mechanical vent as evidenced by NPO Goal: Meet estimated nutritional needs Patient has limited progress towards goal. Pt current nutrition is Vital AF 1.2 at 50 ml/hr over 22 hours. Last recorded weight is 71.6 kg, stable Bowel Motility:FMS Labs Reviewed:Glu 127, BUN 42, Hct 36.4, Hgb 11.5 Meds Noted:Zosyn, Lovenox, Sinemet, Pepcid Skin:WNL Additional Notes: Patient reintubated after self extubation on 11/07. Plans for tube feedings to be restarted of Vital AF 1.2 at 50 ml/hr. Tube feeding will be providing 1320 kcals/83 gms protein, meeting 92% kcal needs and 100% protein needs. Free water flush 30 ml q 4 hours. MD Discussions with family regarding plan of care. Agree with diet orders. Will monitor in ICU rounds and reassessing every Sunday and Sunday.
[2021-11-08] MEDS: MORPHINE SULFATE INJ (*CRX) 10 MG/ML AMP 5 MG IV PUSH (13:03)
[2021-11-08] MEDS: LORazepam INJ (*CRX) 2 MG/ML VIAL IV PUSH (13:03)
--- NOTE | 2021-12-01 11:25 | PM.DDS ---
Discharge Summary Date and Time Date of : 11/08/21 Time of : 14:03 Provider Pronounced By: Izzy León RN and Amanda Fink RN Probable Cause of Probable Cause of : Respiratory failure secondary COVID pneumonia Summary Hospital Course: patient is an elderly gentleman who was admitted for respiratory failure. Found have pneumonia secondary to COVID. To note patient also had history of heart failure and atrial fibrillation. Patient also had acute kidney injury. Patient was admitted to the ICU and monitored closely and continue to decline regarding appropriate treatment for his pneumonia and also for COVID. Patient developed worsening respiratory failure decision was made to make him comfort Measured. Patient subsequently . Time of 2:20 p.m. Additional Data Confirmation of as documented by pronouncing clinician: Pupillary Reflex, Palpable Pulses, Response to Stimuli, Heart Tones and Breath Sounds Name of Provider Notified: dr. 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
== END 2021-11-08 14:03 | disposition expired | DRG 208 ==
LOC: ANHED 19:37 → ANHIMU 19:57 → ANHICU 22:45
PROVIDERS: Internal Medicine; Nurse Practitioner; Admitting Provider Internal Medicine; Emergency Provider Emergency Medicine; PCP Family Medicine; Visit Provider Chiropractor
DX: U07.1 COVID-19 (principal); J80 Acute respiratory distress syndrome; J12.82 Pneumonia due to coronavirus disease 2019; J69.0 Pneumonitis due to inhalation of food and vomit; J15.9 Unspecified bacterial pneumonia; I24.8 Other forms of acute ischemic heart disease; N17.9 Acute kidney failure, unspecified; G20 Parkinson's disease; I50.9 Heart failure, unspecified; I48.91 Unspecified atrial fibrillation; N40.0 Benign prostatic hyperplasia without lower urinary tract symptoms; N18.30 Chronic kidney disease, stage 3 unspecified; H35.30 Unspecified macular degeneration; E87.8 Other disorders of electrolyte and fluid balance, not elsewhere classified; S80.212A Abrasion, left knee, initial encounter; S80.211A Abrasion, right knee, initial encounter; W19.XXXA Unspecified fall, initial encounter; Z87.891 Personal history of nicotine dependence
CPT/HCPCS: 31500; 36415; 36600; 70450; 71045; 71275; 72125; 72170; 80048; 80053; 82375; 82550; 82565; 82805; 82948; 83050; 83735; 83880; 84100; 84460; 84484; 85014; 85018; 85025; 85027; 85380; 85610; 87040; 87070; 87086; 87205; 92950; 93005; 93306; 94002; 94003; 94640; 96374; 96375; 99285; A9270; C1751; C9803; J0248; J0330; J0360; J0456; J0696; J1100; J1650; J1940; J2060; J2250; J2270; J2543; J3010; J3475; J7030; J7060; P9047; Q9967; U0003; U0005